=== PATIENT | female | born 1960 | race Caucasian/White ===

== ENCOUNTER 2017-02-09 13:39 | Emergency (ER) | payer OTHER ==
[~2017-02-09] VITALS: Ht 165.1 cm; Wt 89.0 kg
[2017-02-09 13:44] VITALS: TEMP 36.9
[2017-02-09] MEDS ORDERED: SODIUM CHLORIDE 0.9% 1000ML 1,000 ML IV STA (15:07)
[2017-02-09] MEDS ORDERED: SODIUM CHLORIDE 0.9% 1000ML 1,000 ML IV SCH (15:07)
[2017-02-09] MEDS ORDERED: PROCHLORPERAZINE 5 MG/ML 2 ML VIAL IV STA (15:07)
[2017-02-09] MEDS ORDERED: DiphenhydrAMINE HCL 50 MG/ML VIAL IV STA (15:07)
[2017-02-09 15:09] VITALS: Ht 165.1 cm; Wt 89.0 kg
[2017-02-09 15:16] VITALS: O2SAT 92
[2017-02-09] MEDS ORDERED: BIOT1TAB5 PO (15:48)
[2017-02-09] MEDS ORDERED: ATOR-24 PO (15:48)
[2017-02-09] MEDS ORDERED: SUCR5SUS PO (15:48)
[2017-02-09] MEDS ORDERED: CYAN100T PO (15:48)
[2017-02-09] MEDS ORDERED: LANS30CA12 PO (15:48)
[2017-02-09] MEDS ORDERED: CHOL100027 PO (15:48)
[2017-02-09] MEDS ORDERED: PRM625 PO (15:48)
[2017-02-09] MEDS ORDERED: BUPR75TA20 PO (15:48)
[2017-02-09] MEDS ORDERED: METO25TA56 PO (15:48)
[2017-02-09] MEDS ORDERED: ESCI1TAB6 PO (15:48)
[2017-02-09 15:49] LABS: BASO % 0.3 %; BASO ABS # 0.02 K/uL (0-0.2); COMPLETE YES; EOS % 1.8 %; IG% 0.3 %; LYMPH % 27.1 %; LYMPH ABS # 1.91 K/uL (1.2-3.4); MEAN CELL VOLUME 90.5 fL (80-100); MEAN CORPUSCULAR HEMOGLOBIN 29.9 pg (25-34); MEAN CORPUSCULAR HGB CONC 33.1 g/dl (32-36); MEAN PLATELET VOLUME 10.3 fL (7.4-10.4); MONO % 7.9 %; NEUT % 62.6 %; PLATELET COUNT 237 K/uL (130-400); RED BLOOD COUNT 4.31 M/uL (4.2-5.4); WHITE BLOOD COUNT 7.06 K/uL (4.8-10.8)
--- NOTE | 2017-02-09 15:50 | DIAGNOSTIC IMAGING REPORT ---
CT HEAD WITHOUT CONTRAST (CT) CLINICAL HISTORY: Stroke MIGRAINE, LIKELY SENSITIVITY, CONFUSION. COMPARISON STUDY: No previous studies for comparison. TECHNIQUE: Axial CT of the brain is performed from the vertex to the skull base. IV contrast was not administered for this examination. CT DOSE: 537.48 mGy.cm FINDINGS: No intra or extra-axial mass lesions are visualized. There is no CT evidence of acute cortical infarction. There is no evidence of midline shift. There is no acute hemorrhage. No calvarial fractures are visualized. There are patchy white matter hypodensities likely on a small vessel basis. There is no evidence of pathologic ventricular dilatation. There is no evidence of acute sinusitis IMPRESSION: Nonspecific white matter hypodensities, likely on a small vessel basis. No evidence of intracranial mass. No evidence of acute hemorrhage. Electronically signed by: Colton Amanda M.D. 02/09/2017 3:49 PM Dictated Date/Time: 02/09/2017 3:48 PM
[2017-02-09 16:00] VITALS: BP 162/81; O2SAT 96
[2017-02-09 16:11] LABS: PARTIAL THROMBOPLASTIN RATIO 0.9; PROTHROMBIN TIME (PATIENT) 10.8 SECONDS (9.0-12.0)
[2017-02-09 16:17] LABS: BLOOD UREA NITROGEN 19 mg/dl (7-18); BUN/CREATININE RATIO 19.5 (10-20); CARBON DIOXIDE 27 mmol/L (21-32); CHLORIDE 109 mmol/L (98-107); GLUCOSE 88 mg/dl (70-99); POTASSIUM 4.2 mmol/L (3.5-5.1); SODIUM 143 mmol/L (136-145)
[2017-02-09 16:24] VITALS: PULSE 54
[2017-02-09 17:01] LABS: BENZODIAZEPINE, URINE NEG (NEG); COCAINE,URINE NEG (NEG); PHENCYCLIDINE, URINE NEG (NEG)
--- NOTE | 2017-02-09 17:52 | EMERGENCY ROOM VISIT NOTE ---
History Report prepared by Karin: Camryn Fitch Under the Supervision of: Dr. Maximo Thompson M.D. First contact with patient: 14:54 Chief Complaint: HEADACHE Stated Complaint: MIGRAINE, LIGHT SENSITIVITY, NOT UNDERSTANDING History of Present Illness The patient is a 56 year old female who presents to the Emergency Room with complaints of a persistent headache that began about 10 days ago. Most of her pain is towards the left side of her head across the top of her head. She also reports stabbing pain to the druze area. Light makes her pain worse. She is nauseated. She has had migraines in the past but doesn't get them often. Her migraines do not typically last this long. The quality of her pain does not feel like a typical migraine either - she usually has a dull aching pain in her right forehead with neck stiffness that resolves much more quickly. Her headache does not feel like this currently. This morning, the patient notes that she was uncomfortable due to her migraine. When she was taking to one of her coworkers, she could not understand what they were saying. She was able to understand when she was explained through pictures. This lasted for about an hour, although she reports that she felt intense "cloudiness" in her head afterwards, "my thoughts are not clear." She reports that this has been going on for a while. She often has trouble speaking and making herself understood. Her has noticed this worsening over the past month. He states that she seems to pause while she is talking to try to find a word. The pauses are getting longer and more frequent. Her thoughts are incomplete but not incoherent. She has not had any slurred speech. Her also notes that she has had muted hearing and some fuzzy vision. Finally, the patient complains of numbness in her hands and feet for years that has progressively gotten worse. She had an MRI of the brain a couple of weeks ago since she started having worsening speech problems but has not heard back with results. The patient has a history of diabetes and hypertension prior to a gastric bypass. She does not have a history of stroke. Denies fever, vomiting, unilateral numbness or weakness, or other complaints. Source of History: patient Onset: 10 days ago Position: head Timing: other (persistent) Modifying Factors (Worsening): other (light) Associated Symptoms: + nausea, + numbness (hands and feet), No fevers, No vomiting, No weakness Note: Other symptoms: neurological symptoms (unclear thoughts, pausing to speak) Review of Systems See HPI for pertinent positives & negatives. A total of 10 systems reviewed and were otherwise negative. Past Medical & Surgical Medical Problems: (1) Asthma (2) Diabetes (3) H/O unilateral nephrectomy Surgical Problems: (1) H/O: hysterectomy (2) Hx of cholecystectomy Family History Cancer Diabetes mellitus FHx: gallbladder disease Heart disease Hypertension Kidney disease Kidney stones Lung disease Social History Smoking Status: Never Smoker Smokeless Tobacco Use: No Alcohol Use: none Marital Status: Housing Status: lives with family Occupation Status: employed Current/Historical Medications Scheduled Atorvastatin (Lipitor), 40 MG PO DAILY Biotin (Biotin), 1,000 MCG PO TID Bupropion (Wellbutrin), 75 MG PO BID Cholecalciferol (Vitamin D 1000 Unit), 1,000 INTER.UNIT PO DAILY Cyanocobalamin (Vitamin B-12), 100 MCG PO DAILY Escitalopram Oxalate (Lexapro), 5 MG PO DAILY Estrogens, Conjugated (Premarin), 0.625 MG PO DAILY Lansoprazole (Prevacid), 30 MG PO DAILY Metoprolol Tartrate (Lopressor) (Lopressor), 25 MG PO BID Sucralfate (Sucralfate), 1 GM PO QID Allergies Coded Allergies: Penicillins (Verified Allergy, Severe, ANAPHYLAXIS, 02/09/17) Cat Dander (Verified Allergy, Intermediate, Itching, 02/09/17) Dust Mite Extract (Verified Allergy, Intermediate, Sneezing and watery eyes, 02/09/17) Erythromycin (Verified Allergy, Intermediate, Nausea/Vomiting, 02/09/17) Morphine (Verified Allergy, Intermediate, Migraine, 02/09/17) Woodward (Verified Allergy, Intermediate, Rash, 02/09/17) Tramadol (Verified Allergy, Intermediate, Rash, 02/09/17) Physical Exam Vital Signs Date Time Temp Pulse Resp B/P Pulse Ox O2 Delivery O2 Flow Rate FiO2 02/09/17 16:24 54 02/09/17 16:00 52 20 162/81 96 Room Air 02/09/17 15:40 46 16 02/09/17 15:16 92 Room Air 02/09/17 13:44 36.9 57 16 174/81 92 Room Air Physical Exam Constitutional: Vital signs reviewed. Eyes: Pupils are equal round reactive to light. Conjunctiva are noninjected. ENT: Pharynx is clear without erythema or exudate. Mucous membranes are moist. Neck supple without meningeal signs. Respiratory: Clear to auscultation bilaterally. Breath sounds are equal bilaterally. Cardiovascular: Regular rate and rhythm. No rubs or gallops. GI: Soft, nondistended and nontender. Bowel sounds are present. Musculoskeletal: No peripheral edema. No lower extremity tenderness. Integumentary: No cyanosis. Neurological: The patient is awake and alert. Cranial nerves II-XII are intact. Motor is 5 out of 5 all extremities. Diminished sensation in both feet. Normal speech. No pronator drift. Psychiatric: Normal affect. Medical Decision & Procedures ER Provider Diagnostic Interpretation: Radiology results as stated below per my review and the radiologist's interpretation: CT HEAD WITHOUT CONTRAST (CT) CLINICAL HISTORY: Stroke MIGRAINE, LIKELY SENSITIVITY, CONFUSION. COMPARISON STUDY: No previous studies for comparison. TECHNIQUE: Axial CT of the brain is performed from the vertex to the skull base. IV contrast was not administered for this examination. CT DOSE: 537.48 mGy.cm FINDINGS: No intra or extra-axial mass lesions are visualized. There is no CT evidence of acute cortical infarction. There is no evidence of midline shift. There is no acute hemorrhage. No calvarial fractures are visualized. There are patchy white matter hypodensities likely on a small vessel basis. There is no evidence of pathologic ventricular dilatation. There is no evidence of acute sinusitis IMPRESSION: Nonspecific white matter hypodensities, likely on a small vessel basis. No evidence of intracranial mass. No evidence of acute hemorrhage. Electronically signed by: Colton Amanda M.D. 02/09/2017 3:49 PM Dictated Date/Time: 02/09/2017 3:48 PM Laboratory Results 02/09/17 15:30 Red Blood Count 4.31, Mean Corpuscular Volume 90.5, Mean Corpuscular Hemoglobin 29.9, Mean Corpuscular Hemoglobin Concent 33.1, Mean Platelet Volume 10.3, Neutrophils (%) (Auto) 62.6, Lymphocytes (%) (Auto) 27.1, Monocytes (%) (Auto) 7.9, Eosinophils (%) (Auto) 1.8, Basophils (%) (Auto) 0.3, Neutrophils # (Auto) 4.42, Lymphocytes # (Auto) 1.91, Monocytes # (Auto) 0.56, Eosinophils # (Auto) 0.13, Basophils # (Auto) 0.02 02/09/17 15:30 Test 02/09/17 13:46 02/09/17 15:23 02/09/17 15:30 Urine Opiates Screen NEG (NEG) Urine Methadone, Qualitative NEG (NEG) Urine Barbiturates NEG (NEG) Urine Phencyclidine (PCP) Level NEG (NEG) Ur Amphetamine/Methamphetamine NEG (NEG) MDMA (Ecstasy) Screen POS (NEG) Urine Benzodiazepines Screen NEG (NEG) Urine Cocaine Metabolite NEG (NEG) Urine Marijuana (THC) NEG (NEG) Bedside Glucose 84 mg/dl (70-90) White Blood Count 7.06 K/uL (4.8-10.8) Red Blood Count 4.31 M/uL (4.2-5.4) Hemoglobin 12.9 g/dL (12.0-16.0) Hematocrit 39.0 % (37-47) Mean Corpuscular Volume 90.5 fL (80-100) Mean Corpuscular Hemoglobin 29.9 pg (25-34) Mean Corpuscular Hemoglobin Concent 33.1 g/dl (32-36) Platelet Count 237 K/uL (130-400) Mean Platelet Volume 10.3 fL (7.4-10.4) Neutrophils (%) (Auto) 62.6 % Lymphocytes (%) (Auto) 27.1 % Monocytes (%) (Auto) 7.9 % Eosinophils (%) (Auto) 1.8 % Basophils (%) (Auto) 0.3 % Neutrophils # (Auto) 4.42 K/uL (1.4-6.5) Lymphocytes # (Auto) 1.91 K/uL (1.2-3.4) Monocytes # (Auto) 0.56 K/uL (0.11-0.59) Eosinophils # (Auto) 0.13 K/uL (0-0.5) Basophils # (Auto) 0.02 K/uL (0-0.2) RDW Standard Deviation 44.0 fL (36.4-46.3) RDW Coefficient of Variation 13.4 % (11.5-14.5) Immature Granulocyte % (Auto) 0.3 % Immature Granulocyte # (Auto) 0.02 K/uL (0.00-0.02) Prothrombin Time 10.8 SECONDS (9.0-12.0) Prothromb Time International Ratio 1.0 (0.9-1.1) Activated Partial Thromboplast Time 22.6 SECONDS (21.0-31.0) Partial Thromboplastin Ratio 0.9 Anion Gap 7.0 mmol/L (3-11) Est Creatinine Clear Calc Drug Dose 69.2 ml/min Estimated GFR () 72.9 Estimated GFR (Non- 62.9 BUN/Creatinine Ratio 19.5 (10-20) Calcium Level 10.0 mg/dl (8.5-10.1) Total Creatine Kinase 54 U/L (26-192) Creatine Kinase MB < 0.5 ng/ml (0.5-3.6) Creatine Kinase MB Ratio (0-3.0) Troponin I < 0.015 ng/ml (0-0.045) Laboratory results as reviewed by me. Medications Administered Medications (Trade) Dose Ordered Sig/Bhavesh Route Start Time Stop Time Status Last Admin Dose Admin Sodium Chloride (Nss 1000ml) 1,000 ml @ 50 mls/hr Q20H IV 02/09/17 15:07 02/09/17 16:50 DC 02/09/17 15:38 50 MLS/HR Prochlorperazine Edisylate (Compazine Inj) 10 mg NOW STAT IV 02/09/17 15:07 02/09/17 15:08 DC 02/09/17 16:00 10 MG Diphenhydramine HCl 50 mg 50 mg NOW STAT IV 02/09/17 15:07 02/09/17 15:08 DC 02/09/17 15:59 50 MG Sodium Chloride (Nss 1000ml) 1,000 ml @ 999 mls/hr Q1H1M STAT IV 02/09/17 15:07 02/09/17 16:07 DC 02/09/17 15:38 999 MLS/HR ECG Indication: other (neurological symptoms) Rate (beats per minute): 46 Rhythm: sinus bradycardia Findings: no acute ischemic change, no ectopy ED Course 1455: The patient was evaluated in room D9. A complete history and physical exam was performed. 1507: Ordered NSS 1000 ml @ 999 mls/hr IV, Tammiryl Inj 50 mg IV, Compazine Inj 10 mg IV, NSS 1000 ml @ 50 mls/hr IV. 1540: I reviewed the patient's records from [facility]. She was seen by Dr. Harmon January 08 for several months for a history of being forgetful and trouble finding words. She had seen a neurologist and psychiatrist as well as other specialists in [place] where she is initially from. She had an MRI of the brain January 26 which showed no acute intracranial abnormality without ischemia or mass lesion. She did have some nonspecific white matter signal abnormalities. 1612: I reassessed the patient. Her headache was improved. Her heart rate is in the 60s. 1627: I reassessed the patient and updated her on results. She said that her headache is better and she agreed to follow up with neurology. The patient will be discharged home. Medical Decision This is a 56-year-old female who presents with headache and problems with her speech and comprehension. Differential diagnosis includes migraine headache, tension headache, intracranial mass, intracranial hemorrhage, CVA, early onset dementia. I did perform a limited focused review of portions of the patient's old chart on the electronic medical record. The patient has had no prior visits to this hospital. I did evaluate the patient as noted above. She is neurologically intact. She has no trouble with her comprehension her speech at this time that is noticeable to me. IV access was established. I did order and personally review the patient's 12-lead EKG as described above. She did have some bradycardia during the EKG but on the monitor she has had normal sinus rhythm with a rate in the 60s. I did order and review the patient's blood work as noted in the electronic medical record. I did order a CT of the head. I did review the images myself as well as the radiology report as described above. There is no evidence of acute hemorrhage or mass. She did have some nonspecific white matter hypodensities. I did treat patient with IV Compazine and Benadryl. I did reassess the patient. She is feeling better. I did discuss the test results with her and recommended close follow up with her neurologist and physician. She was discharged in good condition. Impression Primary Impression: Acute headache Additional Impression: Speech problem Scribe Attestation The scribe's documentation has been prepared under my direct and personally reviewed by me in its entirety. I confirm that the note above accurately reflects all work, treatment, procedures, and medical decision making performed by me. Departure Information Dispostion Home / Self-Care Referrals No Doctor, Assigned (PCP) Kaleb Harmon M.D. Patient Instructions Headache Pain, My [facility] Additional Instructions You have been examined and treated today on an emergency basis only. This is not a substitute for, or an effort to provide, complete comprehensive medical care. It is impossible to recognize and treat all injuries or illnesses in a single emergency department visit. It is therefore important that you follow up closely with your physician. Call as soon as possible for an appointment. Return for worsening symptoms or if you develop fever, new numbness or weakness on one side of your body, difficulties with walking, or any other concerning symptoms. Problem Qualifiers Primary Impression: Acute headache Headache type: unspecified
== END 2017-02-09 16:30 | disposition home or self-care (01) ==
LOC: C.EDB 13:42 → C.EDD 16:30
DX: R51 Headache (principal); R47.9 Unspecified speech disturbances; J45.909 Unspecified asthma, uncomplicated; E11.9 Type 2 diabetes mellitus without complications; Z98.84 Bariatric surgery status; Z80.9 Family history of malignant neoplasm, unspecified; Z83.3 Family history of diabetes mellitus; Z83.79 Family history of other diseases of the digestive system; Z82.49 Family history of ischemic heart disease and other diseases of the circulatory system; Z84.1 Family history of disorders of kidney and ureter; Z83.6 Family history of other diseases of the respiratory system; Z79.899 Other long term (current) drug therapy

== ENCOUNTER 2017-10-28 09:04 | Emergency (ER) | payer OTHER ==
[~2017-10-28] VITALS: Ht 165.1 cm; Wt 94.0 kg
[~2017-10-28 09:04] MED LIST: ATOR-24 PO; BIOT1TAB5 PO; BUPR75TA20 PO; CHOL100027 PO; CYAN100T PO; ESCI1TAB6 PO; LANS30CA12 PO; METO25TA56 PO; PRM625 PO; SUCR5SUS PO
[2017-10-28 09:13] VITALS: Ht 165.1 cm; Wt 94.0 kg
--- NOTE | 2017-10-28 09:53 | EMERGENCY ROOM VISIT NOTE ---
History Report prepared by Karin: Isa Jacobs Under the Supervision of: Dr. Erendira Owens M.D. First contact with patient: 09:35 Chief Complaint: BACK PAIN Stated Complaint: BACK PAIN, BLOOD IN STOOL History of Present Illness The patient is a 57 year old female who presents to the Emergency Room with complaints of persistent left sided back pain that began one week ago. She currently rates her discomfort as a 4/10 in severity. The patient states that she has been experiencing sharp pain in her left back, noting that she felt that she had pulled a muscle. She reports increased pain with movement and deep breathing. The patient states that she has tried Tylenol at home without relief. She states that she only has one kidney on her left side, noting that she had a right nephrectomy and cholecystectomy due to cancer. The patient states that since last Wednesday she had diarrhea. She states that two days ago her bowel movements became solid again. The patient states that around 1700 she noted blood in her stools. She states that the bleeding was after a hard bowel movement. The patient denies being on any blood thinners. She denies any fever, chest pain, or shortness of breath. Source of History: patient Onset: 03/01 Position: back Symptom Intensity: 4/10 Quality: sharp Timing: other (persistent) Modifying Factors (Worsening): breathing (deep), movement Associated Symptoms: + diarrhea, No fevers, No chest pain, No SOB Note: Associated Symptoms: rectal bleeding Review of Systems See HPI for pertinent positives & negatives. A total of 10 systems reviewed and were otherwise negative. Past Medical & Surgical Medical Problems: (1) Asthma (2) Diabetes (3) H/O unilateral nephrectomy Surgical Problems: (1) H/O: hysterectomy (2) Hx of cholecystectomy Family History Cancer Diabetes mellitus FHx: gallbladder disease Heart disease Hypertension Kidney disease Kidney stones Lung disease Social History Smoking Status: Never Smoker Alcohol Use: none Marital Status: Housing Status: lives with family Occupation Status: employed Current/Historical Medications Scheduled Atorvastatin (Lipitor), 40 MG PO DAILY Azithromycin (Azithromycin), 1 TAB PO DAILY Biotin (Biotin), 1,000 MCG PO TID Bupropion (Wellbutrin), 75 MG PO BID Cholecalciferol (Vitamin D 1000 Unit), 1,000 INTER.UNIT PO DAILY Cyanocobalamin (Vitamin B-12), 100 MCG PO DAILY Escitalopram Oxalate (Lexapro), 20 MG PO DAILY Estrogens, Conjugated (Premarin), 0.625 MG PO DAILY Lamotrigine (Lamictal), 25 MG PO DAILY Lansoprazole (Prevacid), 30 MG PO DAILY Magnesium Oxide (Mag-Ox), 1,000 MG PO DAILY Metoprolol Tartrate (Lopressor) (Lopressor), 25 MG PO BID Ribavirin (Copegus), 400 MG PO DAILY Sucralfate (Sucralfate), 1 GM PO QID Allergies Coded Allergies: Penicillins (Verified Allergy, Severe, ANAPHYLAXIS, 10/28/17) Cat Dander (Verified Allergy, Intermediate, Itching, 10/28/17) Dust Mite Extract (Verified Allergy, Intermediate, Sneezing and watery eyes, 10/28/17) Erythromycin (Verified Allergy, Intermediate, Nausea/Vomiting, 10/28/17) Morphine (Verified Allergy, Intermediate, Migraine, 10/28/17) Harrison (Verified Allergy, Intermediate, Rash, 10/28/17) Tramadol (Verified Allergy, Intermediate, Rash, 10/28/17) Hydrocodone (Unverified Allergy, Unknown, MIGRAIN, 10/28/17) Physical Exam Vital Signs Date Time Temp Pulse Resp B/P (MAP) Pulse Ox O2 Delivery O2 Flow Rate FiO2 10/28/17 13:41 36.7 55 18 138/78 97 10/28/17 13:31 55 18 138/78 97 Room Air 10/28/17 12:25 55 18 149/88 96 Room Air 10/28/17 10:31 51 10/28/17 10:27 36.7 51 18 154/85 95 Room Air 10/28/17 09:13 36.7 51 18 152/67 95 Room Air Physical Exam Vital signs reviewed. General: Well-appearing female, in no significant distress. HEENT: No scleral icterus, PERRLA, neck supple. Atraumatic. Cardiovascular: Regular rate and rhythm, no extra sounds. Pulmonary: Clear to auscultation bilaterally, normal work of breathing. Abdomen: Soft, nondistended, positive bowel sounds. Back: Positive left CVA tenderness, pain with deep breathing. Rectal: Guaiac negative. Normal rectal exam. Musculoskeletal: Atraumatic, no peripheral edema. Neurologic: Patient awake alert and oriented x 3, full strength in all 4 extremities. Cranial nerves 2 through 12 grossly intact. Skin: Warm, dry, no rash Medical Decision & Procedures ER Provider Diagnostic Interpretation: Radiology results as stated below per my review and radiologist interpretation: (RENAL)RETROPERITON COMP HISTORY: Pain L kidney only, L flank pain, h/o RCC right kidney COMPARISON: None. FINDINGS: Right kidney: Surgically removed Left kidney: Maximum dimension 12.5 cm. Normal corticomedullary differentiation and cortical thickness. No evidence for hydronephrosis. Bladder: No bladder wall thickening. The bilateral ureteral jets were identified. IMPRESSION: 1. Status post right nephrectomy. 2. Normal left kidney. The above report was generated using voice recognition software. It may contain grammatical, syntax or spelling errors. Electronically signed by: Azar Nash M.D. 10/28/2017 11:21 AM Dictated Date/Time: 10/28/2017 11:20 AM (CHEST FOR PE) ANGIO WITH CT DOSE: 388.87 mGy.cm HISTORY: Chest pain dyspnea TECHNIQUE: Multiaxial CT images of the chest were performed following the intravenous administration of contrast to evaluate the pulmonary arteries. Maximal intensity projection images were also obtained. A dose lowering technique was utilized adhering to the principles of ALARA. COMPARISON STUDY: None. FINDINGS: There is a normal caliber thoracic aorta with no evidence for dissection. There is no evidence for pulmonary embolus. No pleural effusions. No pneumothorax. The liver and spleen are unremarkable. No mediastinal or hilar lymphadenopathy. The central airways are patent. Mild bibasilar interstitial change throughout both lower lungs. Several nonspecific hypodensities within the liver possibly small cysts. IMPRESSION: 1. Study is negative for pulmonary embolus. 2. Interstitial change at both lung bases suggesting potential mild interstitial pneumonitis. 3. Prior gastroplasty and cholecystectomy. The above report was generated using voice recognition software. It may contain grammatical, syntax or spelling errors. Electronically signed by: Azar Nash M.D. 10/28/2017 12:16 PM Dictated Date/Time: 10/28/2017 12:02 PM Laboratory Results 10/28/17 09:31 Red Blood Count 4.16, Mean Corpuscular Volume 90.6, Mean Corpuscular Hemoglobin 29.8, Mean Corpuscular Hemoglobin Concent 32.9, Mean Platelet Volume 10.1, Neutrophils (%) (Auto) 67.8, Lymphocytes (%) (Auto) 22.1, Monocytes (%) (Auto) 7.6, Eosinophils (%) (Auto) 1.8, Basophils (%) (Auto) 0.6, Neutrophils # (Auto) 4.84, Lymphocytes # (Auto) 1.58, Monocytes # (Auto) 0.54, Eosinophils # (Auto) 0.13, Basophils # (Auto) 0.04 10/28/17 09:31 Test 10/28/17 09:31 10/28/17 09:59 10/28/17 10:40 White Blood Count 7.14 K/uL (4.8-10.8) Red Blood Count 4.16 M/uL (4.2-5.4) Hemoglobin 12.4 g/dL (12.0-16.0) Hematocrit 37.7 % (37-47) Mean Corpuscular Volume 90.6 fL (80-100) Mean Corpuscular Hemoglobin 29.8 pg (25-34) Mean Corpuscular Hemoglobin Concent 32.9 g/dl (32-36) Platelet Count 252 K/uL (130-400) Mean Platelet Volume 10.1 fL (7.4-10.4) Neutrophils (%) (Auto) 67.8 % Lymphocytes (%) (Auto) 22.1 % Monocytes (%) (Auto) 7.6 % Eosinophils (%) (Auto) 1.8 % Basophils (%) (Auto) 0.6 % Neutrophils # (Auto) 4.84 K/uL (1.4-6.5) Lymphocytes # (Auto) 1.58 K/uL (1.2-3.4) Monocytes # (Auto) 0.54 K/uL (0.11-0.59) Eosinophils # (Auto) 0.13 K/uL (0-0.5) Basophils # (Auto) 0.04 K/uL (0-0.2) RDW Standard Deviation 44.2 fL (36.4-46.3) RDW Coefficient of Variation 13.4 % (11.5-14.5) Immature Granulocyte % (Auto) 0.1 % Immature Granulocyte # (Auto) 0.01 K/uL (0.00-0.02) Anion Gap 5.0 mmol/L (3-11) Est Creatinine Clear Calc Drug Dose 68.3 ml/min Estimated GFR () 69.9 Estimated GFR (Non- 60.3 BUN/Creatinine Ratio 16.3 (10-20) Calcium Level 9.4 mg/dl (8.5-10.1) Magnesium Level 2.0 mg/dl (1.8-2.4) Total Bilirubin 0.5 mg/dl (0.2-1) Direct Bilirubin < 0.1 mg/dl (0-0.2) Aspartate Amino Transf (AST/SGOT) 20 U/L (15-37) Alanine Aminotransferase (ALT/SGPT) 24 U/L (12-78) Alkaline Phosphatase 88 U/L (45-117) Total Protein 6.6 gm/dl (6.4-8.2) Albumin 3.1 gm/dl (3.4-5.0) Lipase 174 U/L (73-393) Bedside D-Dimer > 450 ng/mlFEU (0-450) Bedside Troponin I < 0.030 ng/ml (0-0.045) Urine Color DK YELLOW Urine Appearance CLEAR (CLEAR) Urine pH 5.5 (4.5-7.5) Urine Specific [place] 1.015 (1.000-1.030) Urine Protein NEG (NEG) Urine Glucose (UA) NEG (NEG) Urine Ketones NEG (NEG) Urine Occult Blood NEG (NEG) Urine Nitrite NEG (NEG) Urine Bilirubin NEG (NEG) Urine Urobilinogen NEG (NEG) Urine Leukocyte Esterase NEG (NEG) Laboratory results per my review. Medications Administered Medications (Trade) Dose Ordered Sig/Bhavesh Route Start Time Stop Time Status Last Admin Dose Admin Hydromorphone HCl (Dilaudid Inj) 0.5 mg NOW STAT IV 10/28/17 10:25 10/28/17 10:27 DC 10/28/17 10:39 0.5 MG Ondansetron HCl (Zofran Inj) 4 mg NOW STAT IV 10/28/17 10:25 10/28/17 10:27 DC 10/28/17 10:39 4 MG Sodium Chloride 500 ml @ 999 mls/hr Q31M STAT IV 10/28/17 10:25 10/28/17 10:55 DC 10/28/17 10:39 999 MLS/HR Azithromycin (Zithromax Tab) 500 mg NOW ONCE PO 10/28/17 13:00 10/28/17 13:01 DC 10/28/17 13:36 500 MG ECG Indication: back/shoulder pain Rate (beats per minute): 51 Rhythm: sinus bradycardia Findings: no acute ischemic change, no ectopy, other (T wave abnormality anteriorly) ED Course 0938: Past medical records reviewed. The patient was evaluated in room B5. A complete history and physical examination was performed. 1025: Ordered Sodium Chloride 500 ml @ 999 mls/hr IV, Zofran Inj 4 mg IV, Dilaudid Inj 0.5 mg IV. 1240: I reevaluated the patient and she is resting comfortably. I discussed the test results with the patient and I discussed the treatment plan. She verbalized complete understanding and agreement. The patient is ready to go home. 1300: Ordered Azithromycin 500 mg PO. Medical Decision Differential diagnosis: Etiologies such as musculoskeletal, disc herniation, fracture, aortic disease, metastatic disease, cord compression, discitis, infection, renal colic, gastrointestinal, acute exacerbation of chronic back pain, sciatica, cauda equina, as well as others were entertained. This pt was evaluated and appeared to be in no distress. IV access was obtained and lab work was drawn. Retroperitoneal US was performed and reveals the post-nephrectomy state, but the left kidney appears to be normal. Lab work is significant for a + d-dimer. CTA chest was performed with half dose contrast and reveals B interstitial changes concerning for pneumonitis. Pt was given IV dilaudid 0.5 mg, 4 mg IV zofran and 500 ml bag of NSS. She was given oral hydration as well. Pt was advised of the findings. Pt was given azithromycin 500 mg po with a Rx for remaining 4 days. Pt will continue to hydrate and use tylenol for pain. Pt will return to the ED for worsening of symptoms or any medical concerns. Medication Reconcilliation Current Medication List: was personally reviewed by me Impression Primary Impression: Muscle strain of left upper back Additional Impression: Pneumonia Scribe Attestation The scribe's documentation has been prepared under my direction and personally reviewed by me in its entirety. I confirm that the note above accurately reflects all work, treatment, procedures, and medical decision making performed by me. Departure Information Dispostion Home / Self-Care Prescriptions Azithromycin (Azithromycin) 250 Mg Tab 1 TAB PO DAILY for 4 Days, #4 TAB Prov: Erendira Owens M.D. 10/28/17 Referrals No Doctor, Assigned (PCP) Kaleb Harmon M.D. Forms HOME CARE DOCUMENTATION FORM, IMPORTANT VISIT INFORMATION Patient Instructions My [facility] Additional Instructions Diagnosis: Pneumonia, left upper back strain Azithromycin 250 mg daily for 4 more days, start tomorrow Tylenol 650 mg every 6 hours as needed for pain. Warm compresses and gentle stretching. Follow-up with your primary care physician this week for reevaluation. Return to the ER for worsening of symptoms or any medical concerns. Problem Qualifiers
[2017-10-28] MEDS ORDERED: MAGN400T6 PO (09:59)
[2017-10-28] MEDS ORDERED: [UNRECOGNIZED DRUG - CODE] PO (09:59)
[2017-10-28] MEDS ORDERED: LAMO25TA PO (09:59)
[2017-10-28 10:00] LABS: BASO % 0.6 %; BASO ABS # 0.04 K/uL (0-0.2); COMPLETE YES; EOS % 1.8 %; HEMATOCRIT 37.7 % (37-47); IG% 0.1 %; LYMPH % 22.1 %; LYMPH ABS # 1.58 K/uL (1.2-3.4); MEAN CELL VOLUME 90.6 fL (80-100); MEAN CORPUSCULAR HEMOGLOBIN 29.8 pg (25-34); MEAN CORPUSCULAR HGB CONC 32.9 g/dl (32-36); MEAN PLATELET VOLUME 10.1 fL (7.4-10.4); MONO % 7.6 %; NEUT % 67.8 %; PLATELET COUNT 252 K/uL (130-400); RED BLOOD COUNT 4.16 M/uL (4.2-5.4); WHITE BLOOD COUNT 7.14 K/uL (4.8-10.8)
[2017-10-28 10:19] LABS: POINT OF CARE TROPONIN I < 0.030 ng/ml (0-0.045)
[2017-10-28 10:21] LABS: ALT/SGPT 24 U/L (12-78); BLOOD UREA NITROGEN 17 mg/dl (7-18); BUN/CREATININE RATIO 16.3 (10-20); CALCIUM 9.4 mg/dl (8.5-10.1); CARBON DIOXIDE 27 mmol/L (21-32); CHLORIDE 107 mmol/L (98-107); CREATININE 1.03 mg/dl (0.60-1.20); GLUCOSE 91 mg/dl (70-99); POTASSIUM 4.2 mmol/L (3.5-5.1); SODIUM 139 mmol/L (136-145)
[2017-10-28 10:24] LABS: ALKALINE PHOSPHATASE 88 U/L (45-117); AST/SGOT 20 U/L (15-37)
[2017-10-28] MEDS ORDERED: HYDROmorphone INJ 0.5 MG/0.5 ML SYR IV STA (10:25)
[2017-10-28] MEDS ORDERED: ONDANSETRON INJ 2 MG/ML 2 ML VIAL IV STA (10:25)
[2017-10-28] MEDS ORDERED: SODIUM CHLORIDE 0.9% 500ML 500 ML IV STA (10:25)
[2017-10-28 10:53] LABS: URINE APPEARANCE CLEAR (CLEAR); URINE BILIRUBIN NEG (NEG); URINE COLOR DK YELLOW; URINE NITRITE NEG (NEG); URINE PH 5.5 (4.5-7.5); URINE SPECIFIC GRAVITY 1.015 (1.000-1.030); UROBILINOGEN NEG (NEG); ZZUR CULT IF INDIC CLEAN CATCH NO
[2017-10-28 10:57] LABS: MANUAL MICROSCOPIC REQUIRED? NO; REVIEW REQ? NO
--- NOTE | 2017-10-28 11:22 | DIAGNOSTIC IMAGING REPORT ---
(RENAL)RETROPERITON COMP HISTORY: Pain L kidney only, L flank pain, h/o RCC right kidney COMPARISON: None. FINDINGS: Right kidney: Surgically removed Left kidney: Maximum dimension 12.5 cm. Normal corticomedullary differentiation and cortical thickness. No evidence for hydronephrosis. Bladder: No bladder wall thickening. The bilateral ureteral jets were identified. IMPRESSION: 1. Status post right nephrectomy. 2. Normal left kidney. The above report was generated using voice recognition software. It may contain grammatical, syntax or spelling errors. Electronically signed by: Azar Nash M.D. 10/28/2017 11:21 AM Dictated Date/Time: 10/28/2017 11:20 AM
[2017-10-28] MEDS ORDERED: OPTIRAY 320 IV PRN (11:45)
--- NOTE | 2017-10-28 12:17 | DIAGNOSTIC IMAGING REPORT ---
(CHEST FOR PE) ANGIO WITH CT DOSE: 388.87 mGy.cm HISTORY: Chest pain dyspnea TECHNIQUE: Multiaxial CT images of the chest were performed following the intravenous administration of contrast to evaluate the pulmonary arteries. Maximal intensity projection images were also obtained. A dose lowering technique was utilized adhering to the principles of ALARA. COMPARISON STUDY: None. FINDINGS: There is a normal caliber thoracic aorta with no evidence for dissection. There is no evidence for pulmonary embolus. No pleural effusions. No pneumothorax. The liver and spleen are unremarkable. No mediastinal or hilar lymphadenopathy. The central airways are patent. Mild bibasilar interstitial change throughout both lower lungs. Several nonspecific hypodensities within the liver possibly small cysts. IMPRESSION: 1. Study is negative for pulmonary embolus. 2. Interstitial change at both lung bases suggesting potential mild interstitial pneumonitis. 3. Prior gastroplasty and cholecystectomy. The above report was generated using voice recognition software. It may contain grammatical, syntax or spelling errors. Electronically signed by: Azar Nash M.D. 10/28/2017 12:16 PM Dictated Date/Time: 10/28/2017 12:02 PM
[2017-10-28] MEDS ORDERED: AZITHROMYCIN 250 MG TAB PO ONE (13:00)
[2017-10-28] MEDS ORDERED: AZIT-57 PO (13:13)
[2017-10-28 13:41] VITALS: BP 138/78; PULSE 55; TEMP 36.7; O2SAT 97
== END 2017-10-28 13:42 | disposition home or self-care (01) ==
LOC: C.EDB 09:06
DX: S29.012A Strain of muscle and tendon of back wall of thorax, initial encounter (principal); X58.XXXA Exposure to other specified factors, initial encounter; J45.909 Unspecified asthma, uncomplicated; E11.9 Type 2 diabetes mellitus without complications; Z83.3 Family history of diabetes mellitus; Z82.49 Family history of ischemic heart disease and other diseases of the circulatory system

== ENCOUNTER 2021-01-01 09:30 | Inpatient (IN) ==
--- OUTSIDE RECORDS SUMMARY | 2021-01-01 09:32 | External Medical Summary | Continuity of Care Document ---
:1960 Author Name Stella Covington Address Unavailable Unavailable , Care Team Providers Name Role Phone Jaymie DO Unavailable [email or web address] Unavailable Unavailable Problems Active medical history not documented Allergies and Adverse Reactions Allergy history not documented Medications Medications not documented Procedures Procedures not documented Immunizations Immunizations not documented Plan of Treatment Planned Observations Planned Goals not documented Results No Known Results Results not documented
[2021-01-01] MEDS ORDERED: ONDANSETRON INJ 2 MG/ML 2 ML VIAL IV STA ×2 (10:00→13:15)
[2021-01-01] MEDS ORDERED: SODIUM CHLORIDE 0.9% 1000ML 1,000 ML IV ONE (10:00)
[2021-01-01] MEDS ORDERED: ACETAMINOPHEN 1,000 MG/100 ML VIAL IV STA (10:00)
[2021-01-01] MEDS ORDERED: MoRPHine SULFATE 2 MG/ML CARP IV STA (10:01)
[2021-01-01 10:17] LABS: Basophils # (auto) 0.02 K/uL (0-0.2); Basophils % (auto) 0.1 %; Eosinophils # (auto) 0.03 K/uL (0-0.5); Eosinophils % (auto) 0.2 %; Hematocrit (blood only) 37.5 % (37-47); Hemoglobin 12.1 g/dL (12.0-16.0); Immature Granulocytes # (auto) 0.02 K/uL (0.00-0.02); Immature Granulocytes % (auto) 0.1 %; Lymphocytes # (auto) 0.79 K/uL (1.2-3.4); Lymphocytes % (auto) 5.3 %; Mean Corpuscular Hemoglobin 28.6 pg (25-34); Mean Corpuscular Hgb Conc 32.3 g/dL (32-36); Mean Corpuscular Volume 88.7 fL (80-100); Mean Platelet Volume 9.9 fL (7.4-10.4); Monocytes # (auto) 0.59 K/uL (0.11-0.59); Monocytes % (auto) 3.9 %; Neutrophils # (auto) 13.57 K/uL (1.4-6.5); Neutrophils % (auto) 90.4 %; Platelet Count 236 K/uL (130-400); RDW Coefficient of Variation 14.7 % (11.5-14.5); RDW Standard Deviation 47.6 fL (36.4-46.3); Red Blood Count 4.23 M/uL (4.2-5.4); White Blood Count 15.02 K/uL (4.8-10.8)
[2021-01-01 10:35] LABS: BUN Creatinine Ratio 10.3 (10-20); Calcium 10.2 mg/dl (8.5-10.1); Creatinine Clr Calc Pharmacy 25.2 ml/min; Est GFR (African American) 21.2; Est GFR (Non-African American) 18.2; Potassium 4.4 mmol/L (3.5-5.1)
[2021-01-01 10:39] LABS: Albumin Level 3.7 gm/dl (3.4-5.0); Bilirubin Direct 0.2 mg/dl (0-0.2); Bilirubin,Total 0.6 mg/dl (0.2-1); Total Protein 7.1 gm/dl (6.4-8.2)
--- NOTE | 2021-01-01 11:16 | CT Scan Report ---
CT SCAN OF THE ABDOMEN AND PELVIS WITHOUT CONTRAST CLINICAL HISTORY: L flank and LLQ pain COMPARISON STUDY: 04/16/2018 TECHNIQUE: CT scan of the abdomen and pelvis was performed from the lung bases to the proximal femurs . Images are reviewed in the axial, sagittal, and coronal planes. IV contrast was not administered fo r this examination. A dose lowering technique was utilized adhering to the principles of ALARA. CT DOSE: 669.16 mGy.cm FINDINGS: Lower chest: There is subtle groundglass attenuation of the dependent portion of the lower lobes. The re are no significant pleural effusions. Liver: There is stable 25 mm left hepatic lobe hypodensity, likely representing a cyst. Gallbladder: Surgically absent Spleen: Normal in size and attenuation. Pancreas: Unremarkable. Adrenal glands: There is a stable 18 mm right adrenal nodule likely representing an adenoma Kidneys: The right kidney appears surgically absent. There is left-sided hydronephrosis, hydroureter, and perinephric stranding. There is an obstructing proximal left ureteral calculus measuring 7 x 5 x 4 mm. This is located at the L3-4 level. Bowel: There are no transition zones to indicate bowel obstruction. There are postsurgical changes of a gastric bypass. There is no evidence of acute diverticulitis. By history the appendix is surgicall y absent Peritoneum: There is no intraperitoneal free air or abdominal ascites. Vasculature: The abdominal aorta is normal in course and caliber. Adenopathy: None. Pelvic viscera: The uterus appears surgically absent Skeletal structures: No destructive osseous lesions are seen. IMPRESSION: 1. Obstructing 7 x 5 x 4 mm proximal left ureteral calculus 2. Surgically absent right kidney 3. No evidence of bowel obstruction. No evidence of free air ACT 112: Negative or not required by law. Electronically signed by: Colton Amanda M.D. 01/01/2021 11:15 AM
[2021-01-01] MEDS ORDERED: CIPROFLOXACIN / D5W 400 MG/200 ML BAG IV STA (11:27)
[2021-01-01] MEDS ORDERED: SODIUM CHLORIDE 0.9% 1000ML 500 ML IV ONE (13:01)
--- NOTE | 2021-01-01 13:07 | History & Physical Report ---
Date of Service January 01, 2021 Assessment & Plan (1) Ureteral calculus, left: Pt is 60 y/o F with PMH R renal cell CA s/p nephrectomy, HTN, dyslipidemia, kidney stone, gastric bypass, GERD, anxiety, depression presented to ER with c/o Left flank pain and nausea x 1 day. No fever. WBC: 15 Pending blood cultures, Obtained after initial IV antibiotics in ER In ER given 1L NSS, Cipro 400mg IV, Zofran, 2mg Morphine IV NPO Renal dose cipro IV IVF Bladder scan Urology consult, station installer aware and plan procedure today AM labs (2) IRAM (acute kidney injury): History solitary kidney BUN: 28, Cr: 2.7. Has obstructing ureteral calculi and clinical dehydration Pt to go to OR today per urology Monitor renal functions, avoid nephrotoxic agents when possible Nephrology consult (3) History of nephrectomy, right: H/O Right renal CA s/p nephrectomy. No chemo or radiation history (4) Hypertension: Continue metoprolol tartrate (5) Dyslipidemia: Continue statin (6) Depression with anxiety: Continue escitalopram, bupropion (7) GERD (gastroesophageal reflux disease): Continue PPI DVT Prophylaxis -SCDs Full Code Follows with Dr Harmon for routine care Pt was seen and care coordinated with Dr Marrufo. See addendum History of Present Illness Chief Complaint: Left flank pain, nausea Primary Care Provider: Kaleb Harmon MD Pt is 60 y/o F with PMH R renal cell CA s/p nephrectomy, HTN, dyslipidemia, kidney stone, gastric bypass, GERD, anxiety, depression presented to ER with c/o Left flank pain and nausea x 1 day. Pt states last night started with nausea then with left flank pain radiating to left lower quadrant. Denies vomiting. Reports hasn't urinated today. Denies dysuria or hematuria. Had a few sips of water today. Last ate at 6pm yesterday. Reports chills with no recorded fever. Denies diarrhea, MAGALLANES, dizziness, syncope, vision changes, neck pain, CP, SOB, orthopnea, palpitations, cough, sore throat, choking, otalgia, rhinorrhea, other abdominal pain, paresthesias, weakness, extremity weakness, extremity edema, rashes. Allergies Allergy/AdvReac Type Severity Reaction Status Date / Time Penicillins Allergy Severe ANAPHYLAXIS Verified 01/01/21 11:23 cat dander Allergy Intermediate Itching Verified 01/01/21 11:23 erythromycin base Allergy Intermediate Nausea/Vomi Verified 01/01/21 11:23 ting morphine Allergy Intermediate Migraine Verified 01/01/21 11:23 tramadol Allergy Intermediate Rash Verified 01/01/21 11:23 hydrocodone Allergy Unknown MIGRAIN Unverified 01/01/21 11:23 oxycodone [From Percocet] AdvReac Severe Migraine Verified 01/01/21 11:23 Dust Mite Extract Allergy Intermediate Sneezing Uncoded 01/01/21 11:23 and watery eyes [place] Allergy Intermediate Rash Uncoded 01/01/21 11:23 BIRD FEATHERS Allergy Unknown Rash Uncoded 01/01/21 11:23 Home Medications Medication Instructions Recorded Confirmed Type acetaminophen [Tylenol Extra 500 mg PO Q4 PRN 08/17/18 01/01/21 History Strength] atorvastatin 40 mg PO QPM 08/17/18 01/01/21 History biotin 1,000 mcg PO QPM 08/17/18 01/01/21 History bupropion HCl [Wellbutrin SR] 150 mg PO DAILY 08/17/18 01/01/21 History bupropion HCl [Wellbutrin SR] 300 mg PO HS 08/17/18 01/01/21 History cholecalciferol (vitamin D3) 1,000 unit PO QPM 08/17/18 01/01/21 History [Vitamin D3] cyanocobalamin (vitamin B-12) 100 mcg PO QPM 08/17/18 01/01/21 History [Vitamin B-12] escitalopram oxalate [Lexapro] 20 mg PO QPM 08/17/18 01/01/21 History lansoprazole [Prevacid] 30 mg PO DAILY 08/17/18 01/01/21 History magnesium oxide 400 mg PO QPM 08/17/18 01/01/21 History metoprolol tartrate 25 mg PO BID 08/17/18 01/01/21 History oxybutynin chloride 5 mg PO DAILY 08/17/18 01/01/21 History riboflavin (vitamin B2) 400 mg PO QPM 08/17/18 01/01/21 History albuterol sulfate 2 puff INHALATION Q4H PRN 01/01/21 01/01/21 History vitamins A,C,V-liae-wcztoq 2 tab PO DAILY 01/01/21 01/01/21 History [PreserVision AREDS] Past Med/Surg History Medical History (Updated 01/01/21 @ 13:20 by Beatriz Roman PA-C) Depression with anxiety Dyslipidemia Exercise-induced asthma GERD (gastroesophageal reflux disease) H/O unilateral nephrectomy Right Hypertension Prediabetes Renal cancer Surgical History (Updated 01/01/21 @ 13:07 by Beatriz Roman PA-C) H/O gastric bypass History of nephrectomy, right Hx of cholecystectomy S/P ANNY-BSO Family History Mother Diabetes Sister Diabetes Other Cancer Hypertension Social History Smoking Status: Never smoker Hx Alcohol Use: No Preferred Language: Kazakh Communication Ability: Effective Clerk Funeral Detail Required: No Beliefs That Will Affect Care: None Current Living Situation: Spouse and Family Feels Safe at Home: Yes Assistive Devices: Glasses Review of Systems Review of Systems: All systems reviewed & are unremarkable except as noted in HPI & below Physical Exam Physical Exam: General: no distress, obese Head: normocephalic, atraumatic Eyes: PERRL, EOM's intact, conjunctiva non-injected, anicteric ENT: normal inspection external ears, nose, mucous membranes dry Neck: supple, trachea midline, non-tender Lungs: clear, no respiratory distress, no wheezing/rhonchi/rales CV: RRR, no murmur, no pretibial edema Abd: normal BS, soft, +Left CVA and flank and LLQ tenderness to palpation Ext: no cyanosis, no calf tenderness Neuro: A&O x 3, no focal deficits noted, normal affect Skin: warm, dry Results & Data Results & Data ([facility]) Vital Signs (Past 12 Hours) Vital Signs Temp Pulse Pulse Resp BP BP Pulse Ox 01/01/21 11:30 87 20 165/76 H 97 01/01/21 09:40 36.6 C 62 20 182/84 H 97 Laboratory Results Short CBC 01/01/21 01/01/21 Range/Units 10:06 10:06 WBC 15.02 H (4.8-10.8) K/uL Hgb 12.1 (12.0-16.0) g/dL Hct 37.5 (37-47) % Plt Count 236 (130-400) K/uL Creatinine 2.72 H (0.6-1.2) mg/dl BMP 01/01/21 10:06 Sodium 141 Potassium 4.4 Chloride 109 H Carbon Dioxide 26 BUN 28 H Creatinine 2.72 H Glucose 150 H Calcium 10.2 H Liver Function 01/01/21 Range/Units 10:06 Total Bilirubin 0.6 (0.2-1) mg/dl Direct Bilirubin 0.2 (0-0.2) mg/dl AST 34 (15-37) U/L ALT 52 (12-78) U/L Alkaline Phosphatase 134 H (45-117) U/L Albumin 3.7 (3.4-5.0) gm/dl Diagnostic Findings CT ABD/PELVIS: IMPRESSION: 1. Obstructing 7 x 5 x 4 mm proximal left ureteral calculus 2. Surgically absent right kidney 3. No evidence of bowel obstruction. No evidence of free air Code Status & VTE Plan VTE Prophylaxis Plan VTE Prophylaxis will be ordered: Yes Supervising Physician Co-Signing Physician Notes Pt seen and examined by me, care coordinated with Beatriz Roman PA-C, pls refer to her note above for further detail. Pt is 60 y/o F with PMH R renal cell CA s/p nephrectomy, HTN, dyslipidemia, renal stone, gastric bypass, GERD, anxiety, depression who presents with Left flank pain and nausea x 1 day. Not able to have any PO intake and reports no urine output since yesterday. WBC 15K, no fevers, but reports chills. Currently laying in bed, reports pain but overall in NAD. Conversing easily, pleasant. Alert and oriented and answering questions appropriately. Lungs CTAB w/o any wheezing, rhonchi, crackles. Heart sounds regular. Abdomen, soft, obese + bowel sounds tender to palpation anatoly. in left lower abd. region, + Left CVA. Moves extremities. Skin w/o any rashes. Well perfused. CT in the ED showing obstructive Left ureteral stone, urology contacted. Blood cultx ordered, Cipro and IVF given in ED, will continue. Lia Marrufo MD
[2021-01-01] MEDS ORDERED: METOPROLOL TARTRATE 25 MG TAB PO ONE (13:16)
[2021-01-01] MEDS: MoRPHine SULFATE 2 MG/ML CARP IV PRN ×2 (13:51→17:11)
--- NOTE | 2021-01-01 14:09 | Urology Consultation ---
Date of Consultation January 01, 2021 Assessment & Plan (1) Ureteral calculus, left: (2) Renal colic on left side: (3) History of nephrectomy, right: 60yo F with a hx of right nephrectomy admitted with intractable left flank pain and nausea secondary to a 7mm obstructing proximal left ureteral calculus with hydronephrosis. -Findings reviewed with Dr. العلي -She is afebrile -Labs reviewed, Wbc 15K and creatinine 2.72 -Blood cultures pending -Keep NPO -Strain all urine -Will check a KUB now to assess for stone location -Given her history of right nephrectomy and now with intractable left flank pain and hydronephrosis in the context of an obstructing 7mm proximal left ureteral stone, will proceed with OR for Cystoscopy, Left retrograde pyelogram and Left stent placement, possible Ureteroscopy, laser litho, stone basketing, possible ureteral dilation depending on findings. Risks and benefits to be reviewed with patient by Dr. العلي. OR notified. Preoperative CXR and EKG ordered. Renal dose Cipro given in ED. -Patient agreeable to above plan, all questions were answered. Supervising Physician Co-Signing Physician Notes Spoke with patient and plan on placing a stent as pt with solitary kidney and has pyuria and bacteria. Discussed risk and possible inability to place a stent and damage to the ureter History of Present Illness History of Present Illness The patient is a 60-year-old female with a PMHx including Right RCC s/p nephrectomy, HTN, dyslipidemia, nephrolithiasis, gastric bypass, GERD, anxiety, depression who presented to ER today with c/o Left flank pain and nausea x [address] abdomen pelvis was remarkable for an obstructing 7mm proximal left ureteral stone with hydronephrosis. Chart review: Afebrile, Wbc 15.02, Hgb 12.1, Cr 2.72. Blood cultures pending. IV Cipro, pain medication, and IVF given in ED. CT abdomen pelvis IMPRESSION: 1. Obstructing 7 x 5 x 4 mm proximal left ureteral calculus 2. Surgically absent right kidney 3. No evidence of bowel obstruction. No evidence of free air Patient examined at bedside in the ER this afternoon. Awake, resting in bed on arrival. She continues to have left flank pain and nausea. Pt states the left flank pain and nausea started last night and she did not get much sleep. She denies any fevers, but reports some chills. Denies vomiting. She states she has not urinated since yesterday. Denies dysuria or hematuria. Last ate at 6pm yesterday. Denies CP/SOB. Not currently on any anticoagulants. Denies any urinary issues at baseline. She has previously followed with urology in [place]. Hx of R nephrectomy > 10 years ago ( she is unsure of exact timeframe) Hx of nephrolithiasis with URS LL stent in the past Only known family hx of kidney stones is her grandmother Allergies Allergy/AdvReac Type Severity Reaction Status Date / Time Penicillins Allergy Severe ANAPHYLAXIS Verified 01/01/21 11:23 cat dander Allergy Intermediate Itching Verified 01/01/21 11:23 erythromycin base Allergy Intermediate Nausea/Vomi Verified 01/01/21 11:23 ting morphine Allergy Intermediate Migraine Verified 01/01/21 11:23 tramadol Allergy Intermediate Rash Verified 01/01/21 11:23 hydrocodone Allergy Unknown MIGRAIN Unverified 01/01/21 11:23 oxycodone [From Percocet] AdvReac Severe Migraine Verified 01/01/21 11:23 Dust Mite Extract Allergy Intermediate Sneezing Uncoded 01/01/21 11:23 and watery eyes [place] Allergy Intermediate Rash Uncoded 01/01/21 11:23 BIRD FEATHERS Allergy Unknown Rash Uncoded 01/01/21 11:23 Home Medications Medication Instructions Recorded Confirmed Type acetaminophen [Tylenol Extra 500 mg PO Q4 PRN 08/17/18 01/01/21 History Strength] atorvastatin 40 mg PO QPM 08/17/18 01/01/21 History biotin 1,000 mcg PO QPM 08/17/18 01/01/21 History bupropion HCl [Wellbutrin SR] 150 mg PO DAILY 08/17/18 01/01/21 History bupropion HCl [Wellbutrin SR] 300 mg PO HS 08/17/18 01/01/21 History cholecalciferol (vitamin D3) 1,000 unit PO QPM 08/17/18 01/01/21 History [Vitamin D3] cyanocobalamin (vitamin B-12) 100 mcg PO QPM 08/17/18 01/01/21 History [Vitamin B-12] escitalopram oxalate [Lexapro] 20 mg PO QPM 08/17/18 01/01/21 History lansoprazole [Prevacid] 30 mg PO DAILY 08/17/18 01/01/21 History magnesium oxide 400 mg PO QPM 08/17/18 01/01/21 History metoprolol tartrate 25 mg PO BID 08/17/18 01/01/21 History oxybutynin chloride 5 mg PO DAILY 08/17/18 01/01/21 History riboflavin (vitamin B2) 400 mg PO QPM 08/17/18 01/01/21 History albuterol sulfate 2 puff INHALATION Q4H PRN 01/01/21 01/01/21 History vitamins A,C,D-sbpn-bxumfx 2 tab PO DAILY 01/01/21 01/01/21 History [PreserVision AREDS] Patient History Medical History Depression with anxiety Dyslipidemia Exercise-induced asthma GERD (gastroesophageal reflux disease) H/O unilateral nephrectomy Right Hypertension Prediabetes Renal cancer Surgical History H/O gastric bypass History of nephrectomy, right Hx of cholecystectomy S/P ANNY-BSO Family History Mother Diabetes Sister Diabetes Other Cancer Hypertension Social History Smoking Status: Never smoker Hx Alcohol Use: No Preferred Language: Macedonian Communication Ability: Effective High School Director Required: No Beliefs That Will Affect Care: None Current Living Situation: Spouse and Family Feels Safe at Home: Yes Assistive Devices: Glasses Review of Systems Review of Systems: All systems reviewed & are unremarkable except as noted in HPI & below Physical Exam Constitutional: well developed and well nourished Respiratory: normal respiratory effort; no labored breathing Cardiovascular: Extremities: no calf tenderness Gastrointestinal (Abdomen): Percussion/Palpation: + abdomen tender (left side) and abdomen soft Musculoskeletal: Head/Neck/Chest: normocephalic Skin: Warm and dry. No visible rashes or lesions. Neurologic: awake; not confused Psychiatric: Orientation: alert, oriented x 3 and cooperative Genitourinary: + CVA tenderness (Left) Results & Data ([facility]) Vital Signs (Past 12 Hours) Vital Signs Temp Pulse Pulse Resp BP BP Pulse Ox 01/01/21 11:30 87 20 165/76 H 97 01/01/21 09:40 36.6 C 62 20 182/84 H 97 PG Care Time/CCT Total # of Minutes Spent Total Time Spent with Patient: Total time spent is greater than 50% in coordination of care (as documented) at patient's floor/unit and/or counseling patient: Coding Level of Care Code 52342 Inpt Consult Level 4 Diagnoses Ureteral calculus, left N20.1 Renal colic on left side N23 History of nephrectomy, right Z90.5
--- NOTE | 2021-01-01 14:53 | Emergency Department Note ---
History of Present Illness General Chief Complaint: Abdominal Pain Stated Complaint: ABD PAIN Time Seen by Provider: 01/01/21 09:45 History of Present Illness Provider Complaint: abdominal pain Onset (ago): 2 day(s) Pain Consistency: intermittent Location: L flank Radiation: RLQ Migration to: no migration Severity: moderate Maximum Pain Intensity: 8 Current Pain Intensity: 8 Quality: + stabbing and + sharp Relieved By: + nothing Exacerbated By: + nothing Context: no foreign travel, no possible food poisoning, no sick contacts, no recent antibiotic use, no recent surgery/procedure and no history of similar episodes Associated Symptoms: no nausea, no vomiting, no diarrhea, no fever, no chills, no hematemesis, no melena, no hematuria, no anorexia, no syncope, no headache, no neck pain, no back pain, no chest pain, no weakness, no breathing difficulty and no numbness Patient states she has not been able to urinate since last night. Home Medications Medication Instructions Recorded Confirmed Type acetaminophen [Tylenol Extra 500 mg PO Q4 PRN 08/17/18 01/01/21 History Strength] atorvastatin 40 mg PO QPM 08/17/18 01/01/21 History biotin 1,000 mcg PO QPM 08/17/18 01/01/21 History bupropion HCl [Wellbutrin SR] 150 mg PO DAILY 08/17/18 01/01/21 History bupropion HCl [Wellbutrin SR] 300 mg PO HS 08/17/18 01/01/21 History cholecalciferol (vitamin D3) 1,000 unit PO QPM 08/17/18 01/01/21 History [Vitamin D3] cyanocobalamin (vitamin B-12) 100 mcg PO QPM 08/17/18 01/01/21 History [Vitamin B-12] escitalopram oxalate [Lexapro] 20 mg PO QPM 08/17/18 01/01/21 History lansoprazole [Prevacid] 30 mg PO DAILY 08/17/18 01/01/21 History magnesium oxide 400 mg PO QPM 08/17/18 01/01/21 History metoprolol tartrate 25 mg PO BID 08/17/18 01/01/21 History oxybutynin chloride 5 mg PO DAILY 08/17/18 01/01/21 History riboflavin (vitamin B2) 400 mg PO QPM 08/17/18 01/01/21 History albuterol sulfate 2 puff INHALATION Q4H PRN 01/01/21 01/01/21 History vitamins A,C,G-reow-amqwwf 2 tab PO DAILY 01/01/21 01/01/21 History [PreserVision AREDS] Allergies Allergy/AdvReac Type Severity Reaction Status Date / Time Penicillins Allergy Severe ANAPHYLAXIS Verified 01/01/21 11:23 cat dander Allergy Intermediate Itching Verified 01/01/21 11:23 erythromycin base Allergy Intermediate Nausea/Vomi Verified 01/01/21 11:23 ting morphine Allergy Intermediate Migraine Verified 01/01/21 11:23 tramadol Allergy Intermediate Rash Verified 01/01/21 11:23 hydrocodone Allergy Unknown MIGRAIN Unverified 01/01/21 11:23 oxycodone [From Percocet] AdvReac Severe Migraine Verified 01/01/21 11:23 Dust Mite Extract Allergy Intermediate Sneezing Uncoded 01/01/21 11:23 and watery eyes [place] Allergy Intermediate Rash Uncoded 01/01/21 11:23 BIRD FEATHERS Allergy Unknown Rash Uncoded 01/01/21 11:23 Past Med/Surg History Medical History Depression with anxiety Dyslipidemia Exercise-induced asthma GERD (gastroesophageal reflux disease) H/O unilateral nephrectomy Right Hypertension Prediabetes Renal cancer Surgical History H/O gastric bypass History of nephrectomy, right Hx of cholecystectomy S/P ANNY-BSO Family History Mother Diabetes Sister Diabetes Other Cancer Hypertension Social History Smoking Status: Never smoker Hx Alcohol Use: No Preferred Language: Belarusian Communication Ability: Effective Business Applications Specialist Required: No Beliefs That Will Affect Care: None Current Living Situation: Spouse and Family Feels Safe at Home: Yes Assistive Devices: Glasses Review of Systems A total of 10 systems reviewed and were otherwise negative Physical Exam Vital Signs: Vital Signs - 24 hr 01/01/21 09:40 01/01/21 11:30 01/01/21 14:00 Temperature 36.6 C Temperature Source Temporal Artery Sc an Pulse Rate 62 Pulse Rate [Right Finger] 87 81 Pulse Rhythm [Righ t Finger] Regular Regular Pulse Strength [Ri ght Finger] Normal Normal Respiratory Rate 20 20 18 Respiratory Effort / Characteristics Non-Labored Sponta neous Non-Labored Sponta neous Respiratory Depth Normal Normal Respiratory Patter n Regular Regular Blood Pressure 182/84 H Blood Pressure [Ri ght Arm] 165/76 H 160/95 H Blood Pressure Claudia n 116 Blood Pressure Claudia n [Right Arm] 105 116 Blood Pressure Pos ition [Right Arm] Sitting Pulse Oximetry 97 97 98 Oxygen Delivery Me thod Room Air Room Air Room Air Sepsis Recent Feve r Within 48 Hours No Sepsis New/Unexpla ined Change in Men kevin Status No Sepsis Action Take n by Nursing No Action Required Physical Exam: Physical Exam GENERAL: She is oriented to person, place, and time. She appears well-developed and well-nourished. She does not appear distressed. HENT: Exam performed. -Head: Normocephalic and atraumatic. -Right Ear: External ear normal. No mastoid tenderness. -Left Ear: External ear normal. No mastoid tenderness. -Mouth/Throat: The oropharynx is clear and moist. No trismus in the jaw. No dental abscesses or uvula swelling. No oropharyngeal exudate or tonsillar abscesses. EYES: Conjunctivae and EOM are normal. Pupils are equal, round, and reactive to light. Right eye exhibits no discharge. Left eye exhibits no discharge. No scleral icterus. NECK: Normal range of motion. Neck supple. No JVD present. No spinous process te nderness present. No carotid bruit present. No rigidity. No tracheal deviation and normal range of motion present. No Brudzinski's sign and no Kernig's sign noted. CV: Normal rate, regular rhythm, normal heart sounds and intact distal pulses. There is no peripheral edema. Palpable radial pulses bue. PULM/CHEST: Effort normal and breath sounds normal. No respiratory distress. No stridor. She has no wheezes. She has no rales. -Chest Wall: She exhibits no tenderness. ABD: The abdomen is soft. Bowel sounds are normal. She has no distension. No mass is present. There is tenderness to palpation of the left lower quadrant. There is no rebound, no guarding, no Lewis's sign and no tenderness at McBurney's point. Rovsig negative. Left-sided CVA tenderness. MUSC/SKEL: Normal range of motion. There is no peripheral edema, tenderness or deformity. LYMPH: No cervical adenopathy. NEURO: She is alert and oriented to person, place, and time. She has normal strength. No cranial nerve deficit or sensory deficit. Coordination and gait normal. GCS eye subscore is 4. GCS verbal subscore is 5. GCS motor subscore is 6. Cerebellar tests wnl. SKIN: Skin is warm and dry. She is not diaphoretic. PSYCH: She has a normal mood and affect. Behavior is normal. Judgment and thought content normal. Course Course 0945: The patient was evaluated in room C1. A complete history and physical exam was performed. 1155: Vital signs stable. Patient reports her pain is better status post Analgesia in the emergency department. Labs show leukocytosis of 15. Patient's creatinine is 2.72. Her baseline creatinine is within normal limits. Imaging shows a large left-sided kidney stone. Given the patient's leukocytosis and inability urinate, patient will be empirically treated with antibiotics. Patient has an anaphylactic reaction to penicillin and thus Cipro IV piggyback was ordered for the patient. Spoke with urologyCRNP who answered for Dr. العلي who stated to admit to medicine and urology will be on consult. Urology stated that the patient should remain n.p.o. as he will most likely put in a stent later today. Discussed with Sweetie Christiansen PA-C who stated to admit to Administered Medications Morphine Sulfate (Morphine Sulfate 2 Mg/Ml Carp) 2 mg IV Q3H PRN PRN Reason: Moderate Pain Stop: 01/15/21 12:48 Last Admin: 01/01/21 13:51 Dose: 2 mg Documented by: [id number] Discontinued Medications Acetaminophen (Ofirmev) 1,000 mg in 100 mls @ 400 mls/hr IV NOW STA Stop: 01/01/21 10:14 Last Infusion: 01/01/21 10:38 Dose: 0 mls/hr Documented by: [id number] Admin: 01/01/21 10:18 Dose: 400 mls/hr Documented by: [id number] Sodium Chloride (Nss 1000ml) 1,000 mls @ 999 mls/hr IV .Q1H1M ONE Stop: 01/01/21 11:00 Last Infusion: 01/01/21 11:59 Dose: 0 mls/hr Documented by: [id number] Admin: 01/01/21 10:18 Dose: 999 mls/hr Documented by: [id number] Ciprofloxacin (Cipro / D5w) 400 mg in 200 mls @ 100 mls/hr IV NOW STA; Protocol Stop: 01/01/21 13:26 Last Infusion: 01/01/21 14:12 Dose: 0 mls/hr Documented by: [id number] Admin: 01/01/21 11:59 Dose: 100 mls/hr Documented by: [id number] Sodium Chloride (Nss 1000ml) 500 mls @ 999 mls/hr IV .Q31M ONE Stop: 01/01/21 13:31 Last Infusion: 01/01/21 14:42 Dose: 0 mls/hr Documented by: [id number] Admin: 01/01/21 13:51 Dose: 999 mls/hr Documented by: [id number] Metoprolol Tartrate (Metoprolol Tartrate 25 Mg Tab) 25 mg PO ONE ONE Stop: 01/01/21 13:17 Last Admin: 01/01/21 14:12 Dose: 25 mg Documented by: [id number] Morphine Sulfate (Morphine Sulfate 2 Mg/Ml Carp) 2 mg IV NOW STA Stop: 01/01/21 10:02 Last Admin: 01/01/21 10:18 Dose: 2 mg Documented by: [id number] Ondansetron HCl (Ondansetron Inj 2 Mg/Ml 2 Ml Vial) 4 mg IV NOW STA Stop: 01/01/21 10:01 Last Admin: 01/01/21 10:18 Dose: 4 mg Documented by: [id number] Ondansetron HCl (Ondansetron Inj 2 Mg/Ml 2 Ml Vial) 4 mg IV NOW STA Stop: 01/01/21 13:16 Last Admin: 01/01/21 13:51 Dose: 4 mg Documented by: [id number] Medical Decision Making Laboratory Data Result diagrams: 01/01/21 10:06 01/01/21 10:06 Lab Results 01/01/21 01/01/21 01/01/21 Range/Units 10:06 10:06 13:17 WBC 15.02 H (4.8-10.8) K/uL RBC 4.23 (4.2-5.4) M/uL Hgb 12.1 (12.0-16.0) g/dL Hct 37.5 (37-47) % MCV 88.7 (80-100) fL MCH 28.6 (25-34) pg MCHC 32.3 (32-36) g/dL RDW Std Deviation 47.6 H (36.4-46.3) fL RDW Coeff of [place] 14.7 H (11.5-14.5) % Plt Count 236 (130-400) K/uL MPV 9.9 (7.4-10.4) fL Immature Gran % (Auto) 0.1 % Neut % (Auto) 90.4 % Lymph % (Auto) 5.3 % [place] % (Auto) 3.9 % Eos % (Auto) 0.2 % Baso % (Auto) 0.1 % Neut # (Auto) 13.57 H (1.4-6.5) K/uL Lymph # (Auto) 0.79 L (1.2-3.4) K/uL [place] # (Auto) 0.59 (0.11-0.59) K/uL Eos # (Auto) 0.03 (0-0.5) K/uL Baso # (Auto) 0.02 (0-0.2) K/uL Immature Gran # (Auto) 0.02 (0.00-0.02) K/uL Sodium 141 (136-145) mmol/L Potassium 4.4 (3.5-5.1) mmol/L Chloride 109 H (98-107) mmol/L Carbon Dioxide 26 (21-32) mmol/L Anion Gap 6.0 (3-11) BUN 28 H (7-18) mg/dl Creatinine 2.72 H (0.6-1.2) mg/dl Est Cr Clr Drug Dosing 25.2 ml/min Est GFR ( Amer) 21.2 Est GFR (Non-Af Amer) 18.2 BUN/Creatinine Ratio 10.3 (10-20) Glucose 150 H (70-99) mg/dl Calcium 10.2 H (8.5-10.1) mg/dl Total Bilirubin 0.6 (0.2-1) mg/dl Direct Bilirubin 0.2 (0-0.2) mg/dl AST 34 (15-37) U/L ALT 52 (12-78) U/L Alkaline Phosphatase 134 H (45-117) U/L Total Protein 7.1 (6.4-8.2) gm/dl Albumin 3.7 (3.4-5.0) gm/dl Lipase 157 (73-393) U/L COVID-19 Eval [email or web address] SARS-CoV-2, RNA, NAAT (NEGATIVE) 01/01/21 Range/Units 13:17 WBC (4.8-10.8) K/uL RBC (4.2-5.4) M/uL Hgb (12.0-16.0) g/dL Hct (37-47) % MCV (80-100) fL MCH (25-34) pg MCHC (32-36) g/dL RDW Std Deviation (36.4-46.3) fL RDW Coeff of [place] (11.5-14.5) % Plt Count (130-400) K/uL MPV (7.4-10.4) fL Immature Gran % (Auto) % Neut % (Auto) % Lymph % (Auto) % [place] % (Auto) % Eos % (Auto) % Baso % (Auto) % Neut # (Auto) (1.4-6.5) K/uL Lymph # (Auto) (1.2-3.4) K/uL [place] # (Auto) (0.11-0.59) K/uL Eos # (Auto) (0-0.5) K/uL Baso # (Auto) (0-0.2) K/uL Immature Gran # (Auto) (0.00-0.02) K/uL Sodium (136-145) mmol/L Potassium (3.5-5.1) mmol/L Chloride (98-107) mmol/L Carbon Dioxide (21-32) mmol/L Anion Gap (3-11) BUN (7-18) mg/dl Creatinine (0.6-1.2) mg/dl Est Cr Clr Drug Dosing ml/min Est GFR ( Amer) Est GFR (Non-Af Amer) BUN/Creatinine Ratio (10-20) Glucose (70-99) mg/dl Calcium (8.5-10.1) mg/dl Total Bilirubin (0.2-1) mg/dl Direct Bilirubin (0-0.2) mg/dl AST (15-37) U/L ALT (12-78) U/L Alkaline Phosphatase (45-117) U/L Total Protein (6.4-8.2) gm/dl Albumin (3.4-5.0) gm/dl Lipase (73-393) U/L COVID-19 Eval Order SARS-CoV-2, RNA, NAAT NEGATIVE (NEGATIVE) Imaging Data Radiologist's Impression: CT SCAN OF THE ABDOMEN AND PELVIS WITHOUT CONTRAST CLINICAL HISTORY: L flank and LLQ pain COMPARISON STUDY: 04/16/2018 TECHNIQUE: CT scan of the abdomen and pelvis was performed from the lung bases to the proximal femurs. Images are reviewed in the axial, sagittal, and coronal planes. IV contrast was not administered for this examination. A dose lowering technique was utilized adhering to the principles of ALARA. CT DOSE: 669.16 mGy.cm FINDINGS: Lower chest: There is subtle groundglass attenuation of the dependent portion of the lower lobes. There are no significant pleural effusions. Liver: There is stable 25 mm left hepatic lobe hypodensity, likely representing a cyst. Gallbladder: Surgically absent Spleen: Normal in size and attenuation. Pancreas: Unremarkable. Adrenal glands: There is a stable 18 mm right adrenal nodule likely representing an adenoma Kidneys: The right kidney appears surgically absent. There is left-sided hydronephrosis, hydroureter, and perinephric stranding. There is an obstructing proximal left ureteral calculus measuring 7 x 5 x 4 mm. This is located at the L3-4 level. Bowel: There are no transition zones to indicate bowel obstruction. There are postsurgical changes of a gastric bypass. There is no evidence of acute diverticulitis. By history the appendix is surgically absent Peritoneum: There is no intraperitoneal free air or abdominal ascites. Vasculature: The abdominal aorta is normal in course and caliber. Adenopathy: None. Pelvic viscera: The uterus appears surgically absent Skeletal structures: No destructive osseous lesions are seen. IMPRESSION: 1. Obstructing 7 x 5 x 4 mm proximal left ureteral calculus 2. Surgically absent right kidney 3. No evidence of bowel obstruction. No evidence of free air ACT 112: Negative or not required by law. Electronically signed by: Colton Amanda M.D. 01/01/2021 11:15 AM MDM Narrative Vital signs stable. Patient reports her pain is better status post Analgesia in the emergency department. Labs show leukocytosis of 15. Patient's creatinine is 2.72. Her baseline creatinine is within normal limits. Imaging shows a large left-sided kidney stone. Given the patient's leukocytosis and inability urinate, patient will be empirically treated with antibiotics. Patient has an anaphylactic reaction to penicillin and thus Cipro IV piggyback was ordered for the patient. Spoke with urologyCRNP who answered for Dr. العلي who stated to admit to medicine and urology will be on consult. Urology stated that the patient should remain n.p.o. as he will most likely put in a stent later today. Discussed with Sweetie Christiansen PA-C who stated to admit to Impression & Plan Kidney stone, IRAM (acute kidney injury) Discharge Plan Visit Data Chief Complaint: Abdominal Pain Stated Complaint: ABD PAIN ED Provider: Puma Mejia Discharge Problem: Kidney stone, IRAM (acute kidney injury) Patient Disposition: Admitted As Inpatient Forms Stand Alone Forms: [facility] Prescriptions Prescriptions: No Action atorvastatin 40 mg Tablet 40 mg PO QPM RF: 0 bupropion HCl [Wellbutrin SR] 150 mg Tablet Sustained-Release 12 Hr 150 mg PO DAILY RF: 0 cyanocobalamin (vitamin B-12) [Vitamin B-12] 100 mcg Tablet 100 mcg PO QPM RF: 0 acetaminophen [Tylenol Extra Strength] 500 mg Tablet 500 mg PO Q4 PRN (Reason: Fever Or Pain) RF: 0 magnesium oxide 400 mg (241.3 mg magnesium) Tablet 400 mg PO QPM RF: 0 lansoprazole [Prevacid] 30 mg Capsule,Delayed Release(Dr/Ec) 30 mg PO DAILY RF: 0 oxybutynin chloride 5 mg Tablet Extended Release 24hr 5 mg PO DAILY RF: 0 escitalopram oxalate [Lexapro] 20 mg Tablet 20 mg PO QPM RF: 0 metoprolol tartrate 25 mg Tablet 25 mg PO BID RF: 0 cholecalciferol (vitamin D3) [Vitamin D3] 1,000 unit Tablet 1,000 unit PO QPM RF: 0 biotin 1,000 mcg Tablet,Chewable 1,000 mcg PO QPM RF: 0 riboflavin (vitamin B2) 400 mg Tablet 400 mg PO QPM RF: 0 bupropion HCl [Wellbutrin SR] 150 mg Tablet Sustained-Release 12 Hr 300 mg PO HS RF: 0 albuterol sulfate 90 mcg/actuation HFA aerosol inhaler 2 puff INHALATION Q4H PRN (Reason: Shortness Of Breath) RF: 0 PreserVision AREDS 7,160 unit- 113 mg-100 unit Tablet 2 tab PO DAILY RF: 0 Referrals Referrals: Kaleb Harmon MD [Primary Care Provider] -
[2021-01-01] MEDS ORDERED: ALBUTEROL HFA 8 GM INHALER INH PRN (17:00)
[2021-01-01] MEDS ORDERED: POLYETHYLENE (MIRALAX) 17 GM PACK PO PRN (17:00)
[2021-01-01] MEDS: ONDANSETRON INJ 2 MG/ML 2 ML VIAL IV PRN (17:15)
[2021-01-01] MEDS: SODIUM CHLORIDE 0.9% 1000ML 1,000 ML IV SCH (18:21)
[2021-01-01] MEDS ORDERED: PROPOFOL IV EMULSION 10 MG/ML 20 ML VIAL IV ONE (18:43)
[2021-01-01] MEDS ORDERED: ePHEDrine sulfate 50 MG/ML SYR ONE (18:43)
[2021-01-01] MEDS ORDERED: PHENYLEPHRINE 100MCG/ML 5ML SYR ONE (18:43)
[2021-01-01] MEDS ORDERED: LIDOCAINE HCL 2% 2 ML VIAL/AMP(20MG/ML) INFIL ONE ×2 (18:43→19:18)
[2021-01-01] MEDS ORDERED: ONDANSETRON INJ 2 MG/ML 2 ML VIAL ONE (18:43)
[2021-01-01] MEDS ORDERED: MIDAZOLAM HCL 1 MG/ML 2ML VIAL ONE (18:44)
[2021-01-01] MEDS ORDERED: fentaNYL citrate 100 MCG/2 ML VIAL ONE (18:44)
--- NOTE | 2021-01-01 18:46 | XRay Report ---
XR chest 1V portable HISTORY: Preop. COMPARISON: Chest 08/17/2018. FINDINGS: The lungs are clear. No pleural effusions. No pneumothorax. The heart remains borderline en larged. IMPRESSION: Stable borderline cardiomegaly. No acute process within the chest. ACT 112: Negative or not required by law. Electronically signed by: Maxim Sargent M.D. 01/01/2021 6:45 PM
--- NOTE | 2021-01-01 18:47 | XRay Report ---
KUB HISTORY: Left ureteral stone COMPARISON: Abdomen and pelvis CT 01/01/2021. FINDINGS: The bowel gas pattern is unremarkable. There are no dilated loops of small bowel to suggest an obstruction. Multiple surgical clips seen within the abdomen. This is secondary to a prior right nephrectomy. No left renal calculi. Stable 7 mm stone within the proximal left ureter overlying the left L4 transverse process. No pneumoperitoneum or pneumatosis. IMPRESSION: 1. No change in position of the 7 mm proximal left ureteral stone. 2. Prior right nephrectomy. ACT 112: Negative or not required by law. Electronically signed by: Maxim Sargent M.D. 01/01/2021 6:46 PM
[2021-01-01] MEDS ORDERED: SUCCINYLCHOLINE CHLORIDE 20 MG/ML 10 ML VIAL IV ONE (18:55)
--- NOTE | 2021-01-01 19:00 | Anesthesiology Consultation ---
Date of Service January 01, 2021 Assessment & Plan Chart Review Chart Review: Acceptable Risk for Surgery Consults Requested none History Surgery Operation Date: 01/01/21 10:45 Proposed Procedures p Cystoscopy, Left Retrograde Pyelogram, with Stent Insertion - Paul العلي MD Height/Weight Height: 5 ft 5 in Weight: 95.9 kg Allergies Allergy/AdvReac Type Severity Reaction Status Date / Time Penicillins Allergy Severe ANAPHYLAXIS Verified 01/01/21 11:23 cat dander Allergy Intermediate Itching Verified 01/01/21 11:23 erythromycin base Allergy Intermediate Nausea/Vomi Verified 01/01/21 11:23 ting morphine Allergy Intermediate Migraine Verified 01/01/21 11:23 tramadol Allergy Intermediate Rash Verified 01/01/21 11:23 hydrocodone Allergy Unknown MIGRAIN Unverified 01/01/21 11:23 oxycodone [From Percocet] AdvReac Severe Migraine Verified 01/01/21 11:23 Dust Mite Extract Allergy Intermediate Sneezing Uncoded 01/01/21 11:23 and watery eyes [place] Allergy Intermediate Rash Uncoded 01/01/21 11:23 BIRD FEATHERS Allergy Unknown Rash Uncoded 01/01/21 11:23 Medications Home Medications Medication Instructions Recorded Confirmed Last Taken acetaminophen [Tylenol Extra 500 mg PO Q4 PRN 08/17/18 01/01/21 Unknown Strength] atorvastatin 40 mg PO QPM 08/17/18 01/01/21 12/31/20 biotin 1,000 mcg PO QPM 08/17/18 01/01/21 12/31/20 bupropion HCl [Wellbutrin SR] 150 mg PO DAILY 08/17/18 01/01/21 12/31/20 bupropion HCl [Wellbutrin SR] 300 mg PO HS 08/17/18 01/01/21 12/31/20 cholecalciferol (vitamin D3) 1,000 unit PO QPM 08/17/18 01/01/21 12/31/20 [Vitamin D3] cyanocobalamin (vitamin B-12) 100 mcg PO QPM 08/17/18 01/01/21 12/31/20 [Vitamin B-12] escitalopram oxalate [Lexapro] 20 mg PO QPM 08/17/18 01/01/21 12/31/20 lansoprazole [Prevacid] 30 mg PO DAILY 08/17/18 01/01/21 12/31/20 magnesium oxide 400 mg PO QPM 08/17/18 01/01/21 12/31/20 metoprolol tartrate 25 mg PO BID 08/17/18 01/01/21 12/31/20 oxybutynin chloride 5 mg PO DAILY 08/17/18 01/01/21 12/31/20 riboflavin (vitamin B2) 400 mg PO QPM 08/17/18 01/01/21 12/31/20 albuterol sulfate 2 puff INHALATION Q4H PRN 01/01/21 01/01/21 Unknown vitamins A,C,J-trph-yvtiks 2 tab PO DAILY 01/01/21 01/01/21 Unknown [PreserVision AREDS] Active Medications Generic Name Dose Route Start Last Admin Trade Name Freq PRN Reason Stop Dose Admin Sodium Chloride 1,000 mls @ 125 mls/hr 01/01/21 17:00 01/01/21 18:21 Nss 1000ml IV 01/02/21 08:59 125 mls/hr .Q8H DIETER Administration Morphine Sulfate 2 mg 01/01/21 12:49 01/01/21 17:11 Morphine Sulfate 2 Mg/Ml Carp IV 01/15/21 12:48 2 mg Q3H PRN Administration Moderate Pain Ondansetron HCl 4 mg 01/01/21 17:00 01/01/21 17:15 Ondansetron Inj 2 Mg/Ml 2 Ml Vial IV 01/31/21 16:59 4 mg Q6H PRN Administration Nausea NPO Date Last Intake of Fluids: 12/31/20 Time Last Intake of Fluids: 18:00 Date Last Intake of Solids: 12/31/20 Time Last Intake of Solids: 18:00 Past Medical History Medical History Depression with anxiety Dyslipidemia Exercise-induced asthma GERD (gastroesophageal reflux disease) H/O unilateral nephrectomy Right Hypertension Prediabetes Renal cancer Past Family History Family History Mother Diabetes Sister Diabetes Other Cancer Hypertension Past Surgical History Surgical History H/O gastric bypass History of nephrectomy, right Hx of cholecystectomy S/P ANNY-BSO Social History Smoking Status: Never smoker Hx Alcohol Use: No Hx Substance Use: No substance use type: does not use Last Used Substance: Days (ago) Physical Exam Vital Signs Last Vital Signs Temp 37.4 C 01/01/21 18:45 Pulse 69 01/01/21 18:45 Resp 20 01/01/21 18:45 BP 208/119 H 01/01/21 18:45 Pulse Ox 95 01/01/21 18:45 Testing Laboratory Results 01/01/21 10:06 01/01/21 10:06
[2021-01-01] MEDS ORDERED: ePHEDrine sulfate 50 MG/ML AMP IV PRN (19:02)
[2021-01-01] MEDS ORDERED: ATROPINE SULFATE 0.1 MG/ML 10ML SYR IV PRN (19:02)
[2021-01-01] MEDS ORDERED: PROMETHAZINE HCL 12.5 MG in SODIUM CHLORIDE 0.9% 50 ML IV PRN (19:02)
[2021-01-01] MEDS ORDERED: METOCLOPRAMIDE HCL INJ 5 MG/ML 2 ML VIAL IV PRN (19:02)
[2021-01-01] MEDS ORDERED: fentaNYL citrate 100 MCG/2 ML VIAL IV PRN (19:02)
[2021-01-01] MEDS ORDERED: ONDANSETRON INJ 2 MG/ML 2 ML VIAL IV PRN (19:02)
[2021-01-01] MEDS ORDERED: HYDROmorphone INJ 2 MG/ML SYR/VIAL IV PRN (19:02)
[2021-01-01] MEDS ORDERED: LARYING-O-JET KIT (LTA) ONE (19:18)
[2021-01-01] MEDS ORDERED: DEXAMETHASONE SOD INJ 4 MG/ML VIAL ONE (19:18)
--- NOTE | 2021-01-01 19:35 | Post Operative Brief Note ---
PG Immediate Post Op with CF Date of Surgery January 01, 2021 Pre & Post Diagnosis Operation Date: 01/01/21 10:45 Pre-Op Diagnosis: Ureteral calculus, left Post-Op Diagnosis: Ureteral calculus, left I identified the patient and participated in the time-out.: Yes Procedure Operation Date: 01/01/21 10:45 Actual Procedures p Cystoscopy, Left Retrograde Pyelogram, with Stent Insertion(Left) - Paul العلي MD Surgeon Paul العلي MD Archery Instructor none Estimated Blood Loss 0 Findings Consistent with Post-Op Diagnosis Specimens Specimen Description: Culture 1. urine
[2021-01-01] MEDS ORDERED: DIATRIZOATE MEGLUMINE 30% 100ML VIAL INSTIL PRN (19:51)
--- NOTE | 2021-01-01 20:02 | Fluoroscopy Report ---
FL retrograde includes kub CLINICAL HISTORY: CYSTO STENT PLACEMENT COMPARISON STUDY: None. FLUOROSCOPY TIME: 28 seconds. FINDINGS: 2 fluoroscopic spot images of the abdomen demonstrate retrograde opacification of the left renal collection system. This is followed by placement of a left ureteral stent. Only the proximal po rtion of the stent is identified and appears in good position. IMPRESSION: Fluoroscopy provided for left ureteral stent placement. ACT 112: Negative or not required by law. Electronically signed by: Maxim Sargent M.D. 01/01/2021 8:01 PM
--- NOTE | 2021-01-01 20:38 | Anesthesiology Progress Note ---
Date of Service January 01, 2021 Anesthesia Post Procedure Vital Signs Vital Signs: Temp Pulse Pulse Pulse Resp BP BP 01/01/21 20:25 36.9 C 66 14 160/84 H 01/01/21 20:15 69 16 158/76 H 01/01/21 20:05 72 17 140/78 01/01/21 19:55 72 16 158/86 H 01/01/21 19:49 36.4 C L 74 17 168/83 H 01/01/21 18:45 37.4 C 69 20 01/01/21 16:15 36.7 C 60 01/01/21 14:00 81 18 01/01/21 11:30 87 20 01/01/21 09:40 36.6 C 62 20 182/84 H BP Pulse Ox 01/01/21 20:25 99 01/01/21 20:15 98 01/01/21 20:05 92 01/01/21 19:55 98 01/01/21 19:49 97 01/01/21 18:45 208/119 H 95 01/01/21 16:15 167/92 H 01/01/21 14:00 160/95 H 98 01/01/21 11:30 165/76 H 97 01/01/21 09:40 97 Pain Intensity Left Flank: Pain Intensity: 8 Transfer of Care Handoff Completed per policy Notes Mental Status: alert / awake / arousable and participated in evaluation Patient Amnestic to Procedure: Yes Nausea / Vomiting: adequately controlled Pain: adequately controlled Airway Patency, RR, SpO2: stable & adequate BP & HR: stable & adequate Hydration State: stable & adequate Anesthetic Complications: no major complications apparent
[2021-01-01] MEDS: CHOLECALCIFEROL 1,000 UNITS 25 MCG TAB PO SCH (20:54)
[2021-01-01] MEDS: ESCITALOPRAM OXALATE 20 MG TAB PO SCH (20:54)
[2021-01-01] MEDS: CYANOCOBALAMIN (VITAMIN B-12) 100 MCG TABLET PO SCH (20:54)
[2021-01-01] MEDS: buPROPion SR 150 MG TABCR PO SCH (20:54)
[2021-01-01] MEDS: METOPROLOL TARTRATE 25 MG TAB PO SCH (20:55)
[2021-01-01] MEDS: ATORVASTATIN 40 MG TAB PO SCH (20:55)
[2021-01-01] MEDS: MAGNESIUM OXIDE 400 MG TAB PO SCH (20:55)
[2021-01-01] MEDS ORDERED: NON-FORMULARY MEDICATION (Riboflavin (Vitamin B2) 400 mg Tablet) PO SCH (21:00)
--- NOTE | 2021-01-01 21:02 | Operative Report (OR) ---
DATE OF OPERATION: 01/01/2021 PROCEDURE PERFORMED: Cystoscopy and left stent placement. PREOPERATIVE DIAGNOSES: Left ureteral obstruction and solitary kidney. POSTOPERATIVE DIAGNOSIS: Left ureteral obstruction and solitary kidney. SURGEON: Paul العلي MD ANESTHESIA: General. INDICATIONS: The patient is a 60-year-old female status post right nephrectomy for cancer, who has a previous history of stones, who presents with a left obstructing proximal 7 x 4 ureteral stone, who is anuric and had some elevated white blood cell count, question of some pyuria. The patient was taken for stent placement in preparation for subsequent ureteroscopy once she is recovered, had antibiotics, and the stent has been dilated given the solitary kidney. DESCRIPTION OF THE PROCEDURE: The patient was taken to the operating room where general anesthesia was administered. She was placed in dorsal lithotomy position prior to being prepped and draped in the usual sterile fashion with Venodyne stockings. She had been given ciprofloxacin earlier in the day. A 21-Nigerian cystoscope was placed. The left ureteral orifice was cannulized. Retrograde was performed to an obstructing stone. No contrast was seen beyond that. I was able to pass a dual-flex guidewire beyond the stone into the renal pelvis, passed the 5-Nigerian open-ended catheter over the guidewire into the renal pelvis, removed excess fluid from the renal pelvis, and sent it for culture. Subsequently placed some contrast in the renal pelvis, left the guidewire in place, and then passed a 4.8-Nigerian 26 cm stent over the guidewire without difficulty with a good curl in the renal pelvis and a good curl in the bladder. The patient's bladder was emptied and she was transferred to the recovery room in stable condition. I attest to the content of the Intraoperative Record and any orders documented therein. Any exception s are noted below.
[2021-01-01 21:13] LABS: Appearance Urine Cloudy (Clear); Bilirubin Urine Negative (Negative); Blood Urine 3+ (Negative); Color Urine Dark Yellow; Glucose Urine UA Negative (Negative); Ketones Urine Negative (Negative); Leukocyte Esterase Urine Trace (Negative); Nitrite Urine Negative (Negative); Protein Urine 3+ (Negative); Specific Gravity Urine 1.013 (1.000-1.030); Urobilinogen Urine Negative (Negative); pH Urine 6.5 (4.5-7.5)
[2021-01-01 21:23] LABS: Epithelial Cell Urine 20-30 /lpf (0-5); RBC Urine >30 /hpf (0-4)
[2021-01-01 21:24] LABS: Bacteria Urine Negative (Negative); Calcium Oxalate Crystals Urine Present (None Prsent)
[2021-01-02] MEDS: SODIUM CHLORIDE 0.9% 1000ML 1,000 ML IV SCH (00:30)
[2021-01-02] MEDS: CIPROFLOXACIN / D5W 200 MG/100 ML BAG IV SCH ×2 (05:44→23:53)
[2021-01-02 06:05] LABS: Hematocrit (blood only) 33.5 % (37-47); Hemoglobin 10.6 g/dL (12.0-16.0); Immature Granulocytes # (auto) 0.03 K/uL (0.00-0.02); Immature Granulocytes % (auto) 0.2 %; Lymphocytes % (auto) 4.2 %; Mean Corpuscular Hgb Conc 31.6 g/dL (32-36); Mean Corpuscular Volume 88.4 fL (80-100); Mean Platelet Volume 9.5 fL (7.4-10.4); Monocytes # (auto) 0.68 K/uL (0.11-0.59); Monocytes % (auto) 4.8 %; Neutrophils # (auto) 12.96 K/uL (1.4-6.5); Neutrophils % (auto) 90.8 %; Nucleated RBC # (auto) 0.07 K/uL (0-0); Nucleated RBC % (auto) 0.5 %; Platelet Count 207 K/uL (130-400); RDW Coefficient of Variation 14.7 % (11.5-14.5); RDW Standard Deviation 47.6 fL (36.4-46.3); Red Blood Count 3.79 M/uL (4.2-5.4); White Blood Count 14.27 K/uL (4.8-10.8)
[2021-01-02 06:35] LABS: BUN Creatinine Ratio 10.1 (10-20); Calcium 9.7 mg/dl (8.5-10.1); Creatinine Clr Calc Pharmacy 20.6 ml/min; Est GFR (African American) 16.4; Est GFR (Non-African American) 14.2; Potassium 4.6 mmol/L (3.5-5.1)
[2021-01-02] MEDS: ACETAMINOPHEN 325 MG TAB PO PRN ×3 (07:47→20:05)
[2021-01-02] MEDS: METOPROLOL TARTRATE 25 MG TAB PO SCH ×2 (07:48→20:04)
[2021-01-02] MEDS: LANSOPRAZOLE 30 MG SOLTAB PO SCH (07:48)
[2021-01-02] MEDS: buPROPion SR 150 MG TABCR PO SCH ×2 (07:48→20:05)
--- NOTE | 2021-01-02 10:14 | Nephrology Consultation ---
Date of Consultation January 02, 2021 Assessment & Plan (1) IRAM (acute kidney injury): stage 3 acute renal failure from obstructive uropathy, now relieved and voiding. baseline creatinine 1.0 last reading 2019. presented w/ creatinine 2.7, up to 3.3 day after procedure. suspect increase in creat despite removal of obstruction is from delay in creatinine. chemistries acceptalbe apart from mild hyperchloremia; volume status ok. no bacteriuria so do not expect + urine cx; blood cxs pending. very slight confusion noted ? pain meds >will d/w hospitalist > may want to minimize or avoid morphine w/ worsening renal failure since metabolites can accumulate; recommend hydromorphone if f urtheropiates needed -changed NS to normosol at 80 ml/hr -daily bmp -diet ok -cont ot avoid nephrotoxins -no indication at this time for discussion of dialysis Present on Admission?: Yes (2) Ureteral calculus, left: calcium oxalate stone by hx in setting of malabsorptive bypass procedures; need to verify her hx; s/p stent -cont IVF for now Present on Admission?: Yes (3) History of nephrectomy, right: d/t remote hx of RCC; increases renal risk Present on Admission?: Yes (4) Dysuria: monitor sx; suspect from stone and from instrumentation; should improve w/ more voiding -observe for now adn f/u cxs Care coordinated w/ Dr Haro. Present on Admission?: Yes History of Present Illness Reason for Consultation: IRAM, obstructing stone, solitary kidney Requesting Physician: Dr Haro Attending Physician: López Haro MD History of Present Illness 60 y/o F whom I'm asked to see for IRAM in the setting of solitary kidney after she was admitted last night for obstructing 7 mm L proximal stone s/p urgent L ureteral stent. Other PMH includes 1998 nephrectomy for renal cell carcinoma, gastric bypass approximately early , calcium oxalate stone x one other epis ode shortly after bypass, HL, HTN, anx/depression, gerd. Her creatinine in 2018 was 1.1; 1.0 in 2019 in [facility] system (last available lab); on presentation last evening she was 2.7, up to 3.4 this am. no sob, no edema, N and flank pain much improved; does note ongoing marked dysuria w/o gross ed turia since procedure; was anuric prior to OR. Allergies Allergy/AdvReac Type Severity Reaction Status Date / Time Penicillins Allergy Severe ANAPHYLAXIS Verified 01/01/21 11:23 cat dander Allergy Intermediate Itching Verified 01/01/21 11:23 erythromycin base Allergy Intermediate Nausea/Vomi Verified 01/01/21 11:23 ting morphine Allergy Intermediate Migraine Verified 01/01/21 11:23 tramadol Allergy Intermediate Rash Verified 01/01/21 11:23 hydrocodone Allergy Unknown MIGRAIN Unverified 01/01/21 11:23 oxycodone [From Percocet] AdvReac Severe Migraine Verified 01/01/21 11:23 Dust Mite Extract Allergy Intermediate Sneezing Uncoded 01/01/21 11:23 and watery eyes [place] Allergy Intermediate Rash Uncoded 01/01/21 11:23 BIRD FEATHERS Allergy Unknown Rash Uncoded 01/01/21 11:23 Home Medications Medication Instructions Recorded Confirmed Type acetaminophen [Tylenol Extra 500 mg PO Q4 PRN 08/17/18 01/01/21 History Strength] atorvastatin 40 mg PO QPM 08/17/18 01/01/21 History biotin 1,000 mcg PO QPM 08/17/18 01/01/21 History bupropion HCl [Wellbutrin SR] 150 mg PO DAILY 08/17/18 01/01/21 History bupropion HCl [Wellbutrin SR] 300 mg PO HS 08/17/18 01/01/21 History cholecalciferol (vitamin D3) 1,000 unit PO QPM 08/17/18 01/01/21 History [Vitamin D3] cyanocobalamin (vitamin B-12) 100 mcg PO QPM 08/17/18 01/01/21 History [Vitamin B-12] escitalopram oxalate [Lexapro] 20 mg PO QPM 08/17/18 01/01/21 History lansoprazole [Prevacid] 30 mg PO DAILY 08/17/18 01/01/21 History magnesium oxide 400 mg PO QPM 08/17/18 01/01/21 History metoprolol tartrate 25 mg PO BID 08/17/18 01/01/21 History oxybutynin chloride 5 mg PO DAILY 08/17/18 01/01/21 History riboflavin (vitamin B2) 400 mg PO QPM 08/17/18 01/01/21 History albuterol sulfate 2 puff INHALATION Q4H PRN 01/01/21 01/01/21 History vitamins A,C,N-wcrn-gttfuk 2 tab PO DAILY 01/01/21 01/01/21 History [PreserVision AREDS] Patient History Medical History Depression with anxiety Dyslipidemia Exercise-induced asthma GERD (gastroesophageal reflux disease) H/O unilateral nephrectomy Right Hypertension Prediabetes Renal cancer Surgical History H/O gastric bypass History of nephrectomy, right Hx of cholecystectomy S/P ANNY-BSO Family History Mother Diabetes Sister Diabetes Other Cancer Hypertension Social History Smoking Status: Never smoker Second Hand Exposure: Yes; Hx Alcohol Use: No Hx Substance Use: No Preferred Language: Malaysian Communication Ability: Effective Line Crewman Required: No Beliefs That Will Affect Care: None Current Living Situation: Family Other Information That Helps Us Care for You: No Feels Safe at Home: Yes Safety Concerns: Feels Safe At This Time Assistive Devices: Glasses Review of Systems Review of Systems: All systems reviewed & are unremarkable except as noted in HPI & below Physical Exam Constitutional: well developed, well nourished and + obese; no acute distress Eyes: EOM intact bilaterally ENMT: Ears: no external ear abnormality Nose: no external nose abnormality Mouth: + dry oral mucous membranes Neck: no nuchal rigidity Respiratory: normal respiratory effort Auscultation: lungs clear to auscultation bilaterally and + diminished lung sounds Cardiovascular: RRR, no murmur, no edema Gastrointestinal (Abdomen): Inspection/Auscultation: normal bowel sounds Percussion/Palpation: abdomen soft; abdomen nontender Musculoskeletal: Extremities: strength 5/5 throughout no flank pain Skin: no rashes, warm and dry Neurologic: awake gonzalez, fluent speech, no tremor -- some trouble w/ memory/ word finding >> ? if anxiety Psychiatric: Orientation: alert and oriented x 3 Speech: normal rat e/rhythm/volume of speech Affect: + anxious affect Results & Data ([facility]) Vital Signs (Past 12 Hours) Vital Signs Temp Pulse Pulse Resp BP Pulse Ox 01/02/21 07:44 36.7 C 63 18 117/64 95 01/02/21 07:27 69 01/02/21 03:00 36.7 C 73 20 142/78 H 97 01/01/21 23:02 36.6 C 66 20 148/88 H 95 Laboratory Results 01/02/21 05:38 01/02/21 05:38 uacm > no bacteria, >30 RBC, +WBC and epithelial cells blood and urine cxs pending Diagnostic Findings CT abd/pelvis non con admissn Lower chest: There is subtle groundglass attenuation of the dependent portion of the lower lobes. There are no significant pleural effusions. Liver: There is stable 25 mm left hepatic lobe hypodensity, likely representing a cyst. Gallbladder: Surgically absent Spleen: Normal in size and attenuation. Pancreas: Unremarkable. Adrenal glands: There is a stable 18 mm right adrenal nodule likely representing an adenoma Kidneys: The right kidney appears surgically absent. There is left-sided hydronephrosis, hydroureter, and perinephric stranding. There is an obstructing proximal left ureteral calculus measuring 7 x 5 x 4 mm. This is located at the L3-4 level. Bowel: There are no transition zones to indicate bowel obstruction. There are postsurgical changes of a gastric bypass. There is no evidence of acute diverticulitis. By history the appendix is surgically absent Peritoneum: There is no intraperitoneal free air or abdominal ascites. Vasculature: The abdominal aorta is normal in course and caliber. Adenopathy: None. Pelvic viscera: The uterus appears surgically absent Skeletal structures: No destructive osseous lesions are seen. IMPRESSION: 1. Obstructing 7 x 5 x 4 mm proximal left ureteral calculus 2. Surgically absent right kidney 3. No evidence of bowel obstruction. No evidence of free air cxr > borderline cardiomegaly w/o acute CP process
--- NOTE | 2021-01-02 11:15 | Urology Progress Note ---
Date of Service January 02, 2021 Assessment & Plan (1) Ureteral calculus, left: (2) History of nephrectomy, right: 60yo F with a hx of right nephrectomy admitted with intractable left flank pain and nausea secondary to a 7mm obstructing proximal left ureteral calculus with hydronephrosis. -POD #1 s/p Cystoscopy, Left stent placement by Dr. العلي -Patient doing well with improvement in symptoms post procedure -Remains afebrile -Labs reviewed, presented w/ creatinine 2.7, up to 3.3 today - Nephrology following, will continue to trend -Tolerating stent with minimal discomfort -Voiding without difficulty, will continue to monitor -Urine and blood cultures pending -Continue supportive care and antibiotics, follow cultures -Will continue to follow Admission and Anticipated Discharge Date Admission Date: January 01, 2021 Subjective POD #1 s/p Cystoscopy, Left stent placement with Dr. العلي Pt examined at bedside this AM. Awake, sitting up in bed on arrival. She reports a significant improvement in pain. Tolerating the stent with minimal bother. Voiding without difficulty, some hematuria and dysuria as expected. Denies fevers or chills. Tolerating reg diet, no nausea or vomiting. Overall feeling much better. Chart review: Afebrile Wbc 14.27 (previously 15.02) Hgb 10.6 (previously 12.1) Cr 3.35 (previously 2.72) Urine output overnight- 175ml Urine and blood cultures pending On IV renal dose Cipro Review of Systems Constitutional: as per Subjective / HPI Gastrointestinal: as per Subjective / HPI Genitourinary: as per Subjective / HPI Physical Exam Constitutional: well developed and well nourished; no acute distress Respiratory: normal respiratory effort and able to speak in complete sentences Cardiovascular: Extremities: no calf tenderness Gastrointestinal (Abdomen): Percussion/Palpation: abdomen soft; abdomen nontender and no guarding Skin: no rashes, warm and dry Neurologic: moves all extremities and awake; not confused Psychiatric: A+Ox3, euthymic affect Results & Data ([facility]) Vital Signs (Past 12 Hours) Vital Signs Temp Pulse Pulse Resp BP Pulse Ox 01/02/21 07:44 36.7 C 63 18 117/64 95 01/02/21 07:27 69 01/02/21 03:00 36.7 C 73 20 142/78 H 97 PG Care Time/CCT Total # of Minutes Spent Total Time Spent with Patient: Total time spent is greater than 50% in coordination of care (as documented) at patient's floor/unit and/or counseling patient: Coding Level of Care Code 63630 Subseq Hosp Care Lvl 2 Diagnoses Ureteral calculus, left N20.1 History of nephrectomy, right Z90.5
[2021-01-02] MEDS ORDERED: HYDROmorphone HCL 2 MG TAB PO PRN (11:26)
[2021-01-02] MEDS: NORMOSOL-R 1,000 ML IV SCH (11:31)
--- NOTE | 2021-01-02 15:13 | Hospitalist Progress Note ---
Date of Service January 02, 2021 Assessment & Plan (1) Ureteral calculus, left: Patient is a 60 yr female with H/O Right renal cell CA s/p nephrectomy, HTN, dyslipidemia, kidney stone, gastric bypass, GERD, anxiety, depression presented to ER with c/o Left flank pain and nausea x 1 day. Left Ureteral Stone -CT ABD:1. Obstructing 7 x 5 x 4 mm proximal left ureteral calculus. Surgically absent right kidney. No evidence of bowel obstruction. No evidence of free air -S/P Cystoscopy, Left stent placement by Dr. العلي POD #1 -Blood Cx: Negative to date -Urine Cx;Negative -Empirically receiving Ciprofloxacin -Appreciate Urology Input -Pain Control -Needs follow up with Urology upon discharge (2) IRAM (acute kidney injury): H/O Right Nephrectomy Baseline Cr: ~ 1.0 Monitor renal function Continue IV fluids Avoid Nephrotoxic agents as able Appreciate Nephrology Input (3) History of nephrectomy, right: H/O Right renal CA s/p nephrectomy (4) Hypertension: Continue metoprolol (5) Dyslipidemia: Continue statin (6) Depression with anxiety: Continue escitalopram, bupropion (7) GERD (gastroesophageal reflux disease): Continue PPI DVT Px SCDs Encourage to ambulate Code Status Full Code Disposition Follows with Dr Harmon for routine care Admission and Anticipated Discharge Date Admission Date: January 01, 2021 Subjective Patient is seen and examined bedside States having minimal dysuria Denies hematuria Also states having right-sided sciatic pain Denies chest pain, dyspnea, dizziness, nausea, abdominal pain Offers no other complaints Review of Systems Review of Systems: All systems reviewed & are unremarkable except as noted in HPI & below Physical Exam Physical Exam: Physical Exam: Vitals signs as noted above General Appearance:Obese, no apparent distress Head: normocephalic, Atraumatic Eyes: normal inspection, EOMI Neck: supple, Trachea midline Respiratory/Chest: Normal breath sounds, CTA Cardiovascular: S1, S2, No murmur Abdomen/GI:Soft, Non tender, Bowel sounds present Extremities/Musculoskelatal:normal inspection, no edema Neurologic/Psych:AAOX3, grossly no focal neurological deficits Skin: normal color, warm Results & Data Results & Data ([facility]) Vital Signs (Past 12 Hours) Vital Signs Temp Pulse Pulse Resp BP Pulse Ox 01/02/21 11:32 36.8 C 62 18 120/73 95 01/02/21 07:44 36.7 C 63 18 117/64 95 01/02/21 07:27 69 Laboratory Results Short CBC 01/02/21 Range/Units 05:38 WBC 14.27 H (4.8-10.8) K/uL Hgb 10.6 L (12.0-16.0) g/dL Hct 33.5 L (37-47) % Plt Count 207 (130-400) K/uL BMP 01/02/21 05:38 Sodium 142 Potassium 4.6 Chloride 113 H Carbon Dioxide 21 BUN 34 H Creatinine 3.35 H D Glucose 156 H Calcium 9.7 Urine 01/01/21 Range/Units Unknown Urine Color Dark Yellow Urine Appearance Cloudy A (Clear) Urine pH 6.5 (4.5-7.5) Ur Specific [place] 1.013 (1.000-1.030) Urine Protein 3+ H (Negative) Urine Glucose (UA) Negative (Negative)
[2021-01-02] MEDS: CYANOCOBALAMIN (VITAMIN B-12) 100 MCG TABLET PO SCH (20:05)
[2021-01-02] MEDS: ESCITALOPRAM OXALATE 20 MG TAB PO SCH (20:05)
[2021-01-02] MEDS: CHOLECALCIFEROL 1,000 UNITS 25 MCG TAB PO SCH (20:05)
[2021-01-02] MEDS: ATORVASTATIN 40 MG TAB PO SCH (20:05)
[2021-01-02] MEDS: MAGNESIUM OXIDE 400 MG TAB PO SCH (20:05)
[2021-01-02] MEDS ORDERED: BENZONATATE 100 MG CAPSULE PO PRN (21:14)
[2021-01-03] MEDS: ACETAMINOPHEN 325 MG TAB PO PRN (00:07)
[2021-01-03] MEDS: guaiFENesin SUGAR FREE 200 MG/10 ML UDC PO PRN ×3 (00:07→19:03)
[2021-01-03] MEDS: NORMOSOL-R 1,000 ML IV SCH (00:54)
[2021-01-03 06:47] LABS: Hematocrit (blood only) 30.9 % (37-47); Hemoglobin 9.9 g/dL (12.0-16.0); Mean Corpuscular Hemoglobin 28.4 pg (25-34); Mean Corpuscular Volume 88.5 fL (80-100); Mean Platelet Volume 9.9 fL (7.4-10.4); Platelet Count 199 K/uL (130-400); RDW Coefficient of Variation 15.4 % (11.5-14.5); Red Blood Count 3.49 M/uL (4.2-5.4)
[2021-01-03 07:23] LABS: BUN Creatinine Ratio 10.9 (10-20); Calcium 9.7 mg/dl (8.5-10.1); Est GFR (African American) 23.8; Est GFR (Non-African American) 20.5; Magnesium 2.1 mg/dl (1.8-2.4); Potassium 4.3 mmol/L (3.5-5.1)
--- NOTE | 2021-01-03 08:08 | Nephrology Progress Note ---
Date of Service January 03, 2021 Assessment & Plan (1) IRAM (acute kidney injury): improving stage 3 acute renal failure from obstructive uropathy, now relieved and voiding. baseline creatinine 1.0 last reading 2018. presented w/ creatinine 2.7, up to 3.4 day after procedure on 01/02. suspect increase in creat despite removal of obstruction is from delay in creatinine. down to 2.5 today. chemistries acceptabl apart from worsening hyperchloremia; volume status ok. no bacteriuria so do not expect + urine cx; blood cxs pending and NGTD. very slight confusion noted 01/02 ? pain meds > cleared on 01/03 >cont to avoid morphine w/ worsening renal failure since metabolites can accumulate; recommend hydromorphone if furtheropiates needed -changed normosol to 1/2 NS at 125 ml/hr -daily bmp -diet ok -cont ot avoid nephrotoxins -no indication at this time for discussion of dialysis (2) Ureteral calculus, left: calcium oxalate stone by hx in setting of malabsorptive bypass procedures; need to verify her hx; s/p stent -cont IVF as above for now (3) History of nephrectomy, right: d/t remote hx of RCC; increases renal risk (4) Dysuria: monitor sx; suspect from stone and from instrumentation; should improve w/ more voiding >> resolved (5) Cough: ? asthma versus irritation/trauma from procedure anesthesia; no respiratory concerns currently; Dr Haro aware Care coordinated w/ Dr Haro Present on Admission?: Yes Admission and Anticipated Discharge Date Admission Date: January 01, 2021 Subjective dysuria resolved. feels generally improved; no sob or orthopnea but does c/o cough and upper chest tightness since arrival. seen on rounds at 10am. Review of Systems Review of Systems: All systems reviewed & are unremarkable except as noted in Subjective Physical Exam Constitutional: well developed, well nourished and + obese; no acute distress Eyes: EOM intact bilaterally ENMT: Ears: no external ear abnormality Nose: no external nose abnormality Mouth: + dry oral mucous membranes Neck: no nuchal rigidity Respiratory: normal respiratory effort; no labored breathing Auscultation: lungs clear to auscultation bilaterally and + diminished lung sounds on RA Cardiovascular: RRR, no murmur, no edema Gastrointestinal (Abdomen): Inspection/Auscultation: normal bowel sounds Percussion/Palpation: abdomen soft; abdomen nontender Musculoskeletal: Extremities: strength 5/5 throughout Skin: no rashes, warm and dry Neurologic: awake Psychiatric: Orientation: alert and oriented x 3 Speech: normal rate/rhythm/volume of speech Affect: + anxious affect Results & Data ([facility]) Vital Signs (Past 12 Hours) Vital Signs Temp Pulse Pulse Resp BP BP Pulse Ox 01/03/21 07:35 36.7 C 62 18 137/85 98 01/03/21 03:00 65 01/03/21 02:35 36.9 C 68 18 124/78 97 01/02/21 22:27 36.8 C 64 18 112/72 96 01/02/21 20:08 57 L 136/84 Laboratory Results 01/03/21 06:01 01/03/21 06:01
[2021-01-03] MEDS: SODIUM CHLORIDE 0.45 % 1,000 ML IV SCH ×2 (09:14→17:54)
[2021-01-03] MEDS: METOPROLOL TARTRATE 25 MG TAB PO SCH ×2 (09:17→20:50)
[2021-01-03] MEDS: buPROPion SR 150 MG TABCR PO SCH ×2 (09:17→20:50)
[2021-01-03] MEDS: LANSOPRAZOLE 30 MG SOLTAB PO SCH (09:17)
--- NOTE | 2021-01-03 09:48 | Urology Progress Note ---
Date of Service January 03, 2021 Assessment & Plan (1) History of nephrectomy, right: (2) Ureteral calculus, left: 60yo F with a hx of right nephrectomy admitted with intractable left flank pain and nausea secondary to a 7mm obstructing proximal left ureteral calculus with hydronephrosis. -POD #2 s/p Cystoscopy, Left stent placement by Dr. العلي -Patient doing well, clinically progressing -Remains afebrile -Labs reviewed, creatinine down to 2.4 today- Nephrology following, continue to trend -Tolerating stent with minimal discomfort -Voiding without difficulty -Urine culture negative -Blood cultures pending -Continue supportive care and antibiotics, follow cultures -Will arrange outpatient follow-up with urology for definitive stone management -Thank you for allowing us to participate in the acute care of Mrs. Reyna. Please reconsult us with additional questions, concerns or changes in patient status. Admission and Anticipated Discharge Date Admission Date: January 01, 2021 Subjective POD #2 s/p Cystoscopy, Left stent placement by Dr. العلي Pt examined at bedside this AM. Awake, sitting up in bed on arrival. Denies any pain or discomfort at this time. Tolerating the stent with minimal bother. Voiding without difficulty, denies hematuria and dysuria. Some urinary urgency. Denies fevers or chills. Tolerating diet, no nausea or vomiting. No additional complaints today Chart review: Afebrile Wbc 9.70 Hgb 9.9 Cr 2.47 (previously 3.35) Urine output overnight- 1450ml Urine culture final no growth Blood cultures pending On IV renal dose Cipro Review of Systems Constitutional: as per Subjective / HPI Gastrointestinal: as per Subjective / HPI Genitourinary: as per Subjective / HPI Physical Exam Constitutional: well developed and well nourished; no acute distress and not ill appearing Respiratory: normal respiratory effort and able to speak in complete sentences Cardiovascular: Extremities: no calf tenderness Gastrointestinal (Abdomen): Percussion/Palpation: abdomen soft; abdomen nontender and no guarding Skin: no rashes, warm and dry Neurologic: moves all extremities and awake Psychiatric: Orientation: alert, oriented x 3 and cooperative Results & Data ([facility]) Vital Signs (Past 12 Hours) Vital Signs Temp Pulse Pulse Resp BP BP Pulse Ox 01/03/21 07:35 36.7 C 62 18 137/85 98 01/03/21 03:00 65 01/03/21 02:35 36.9 C 68 18 124/78 97 01/02/21 22:27 36.8 C 64 18 112/72 96 PG Care Time/CCT Total # of Minutes Spent Total Time Spent with Patient: Total time spent is greater than 50% in coordination of care (as documented) at patient's floor/unit and/or counseling patient: Coding Level of Care Code 69323 Subseq Hosp Care Lvl 2 Diagnoses History of nephrectomy, right Z90.5 Ureteral calculus, left N20.1
[2021-01-03] MEDS ORDERED: BENZONATATE 100 MG CAPSULE PO PRN (11:55)
[2021-01-03] MEDS: DOXYCYCLINE HYCLATE 100 MG CAP PO SCH ×2 (13:19→20:49)
--- NOTE | 2021-01-03 13:22 | XRay Report ---
XR chest 2V PA/lateral CLINICAL HISTORY: Cough. COMPARISON STUDY: Chest radiograph January 01, 2021. FINDINGS: Lung volumes are normal. Lungs are clear. There is no pneumothorax or pleural effusion. Car diac size is stable. Mediastinal contours are normal. There is no evidence for pulmonary edema. IMPRESSION: No acute cardiopulmonary findings. ACT 112: Negative or not required by law. Electronically signed by: French Pelaez M.D. 01/03/2021 1:20 PM
[2021-01-03 14:37] LABS: Influenza A virus by PCR Negative (Neg); Influenza B virus by PCR Negative (Neg); RSV by PCR Negative (Neg); SARS CoV2 RNA(COVID-19) InHosp NEGATIVE (Negative)
--- NOTE | 2021-01-03 15:30 | Hospitalist Progress Note ---
Date of Service January 03, 2021 Assessment & Plan (1) Ureteral calculus, left: Patient is a 60 yr female with H/O Right renal cell CA s/p nephrectomy, HTN, dyslipidemia, kidney stone, gastric bypass, GERD, anxiety, depression presented to ER with c/o Left flank pain and nausea x 1 day. Left Ureteral Stone -CT ABD:1. Obstructing 7 x 5 x 4 mm proximal left ureteral calculus. Surgically absent right kidney. No evidence of bowel obstruction. No evidence of free air -S/P Cystoscopy, Left stent placement by Dr. العلي POD #2 -Blood Cx: Negative to date -Urine Cx;Negative -Empirically received Ciprofloxacin -Appreciate Urology Input -Pain Control -Needs follow up with Urology upon discharge (2) IRAM (acute kidney injury): H/O Right Nephrectomy Baseline Cr: ~ 1.0 Monitor renal function Continue IV fluids Avoid Nephrotoxic agents as able Appreciate Nephrology Input Cr: 2.7>3.3>2.4 Possible acute bronchitis Covid screen negative Chest x-ray: No acute cardiopulmonary findings. Started on Doxycycline (3) History of nephrectomy, right: H/O Right renal CA s/p nephrectomy (4) Hypertension: Continue metoprolol (5) Dyslipidemia: Continue statin (6) Depression with anxiety: Continue escitalopram, bupropion (7) GERD (gastroesophageal reflux disease): Continue PPI DVT Px SCDs Encourage to ambulate Code Status Full Code Disposition Follows with Dr Harmon for routine care Admission and Anticipated Discharge Date Admission Date: January 01, 2021 Subjective Patient is seen and examined bedside Reports non expectorant cough Also states having sore throat Dysuria resolved Denies flank pain, chest pain, dyspnea, dizziness, nausea, abdominal pain Renal function slowly improving Review of Systems Review of Systems: All systems reviewed & are unremarkable except as noted in HPI & below Physical Exam Physical Exam: Physical Exam: Vitals signs as noted above General Appearance:Obese, no apparent distress Head: normocephalic, Atraumatic Eyes: normal inspection, EOMI Neck: supple, Trachea midline Respiratory/Chest: Normal breath sounds, CTA Cardiovascular: S1, S2, No murmur Abdomen/GI:Soft, Non tender, Bowel sounds present Extremities/Musculoskelatal:normal inspection, no edema Neurologic/Psych:AAOX3, grossly no focal neurological deficits Skin: normal color, warm Results & Data Results & Data ([place]) Vital Signs (Past 12 Hours) Vital Signs Temp Pulse Pulse Resp BP BP Pulse Ox 01/03/21 15:23 36.6 C 61 20 133/77 96 01/03/21 11:42 57 L 01/03/21 11:26 36.6 C 52 L 18 130/85 97 01/03/21 07:35 36.7 C 62 18 137/85 98 Laboratory Results Short CBC 01/03/21 Range/Units 06:01 WBC 9.70 (4.8-10.8) K/uL Hgb 9.9 L (12.0-16.0) g/dL Hct 30.9 L (37-47) % Plt Count 199 (130-400) K/uL BMP 01/03/21 06:01 Sodium 146 H Potassium 4.3 Chloride 115 H Carbon Dioxide 27 BUN 27 H Creatinine 2.47 H D Glucose 99 Calcium 9.7
[2021-01-03] MEDS: ATORVASTATIN 40 MG TAB PO SCH (20:49)
[2021-01-03] MEDS: ESCITALOPRAM OXALATE 20 MG TAB PO SCH (20:49)
[2021-01-03] MEDS: MAGNESIUM OXIDE 400 MG TAB PO SCH (20:49)
[2021-01-03] MEDS: CYANOCOBALAMIN (VITAMIN B-12) 100 MCG TABLET PO SCH (20:50)
[2021-01-03] MEDS: CHOLECALCIFEROL 1,000 UNITS 25 MCG TAB PO SCH (20:50)
[2021-01-04] MEDS: SODIUM CHLORIDE 0.45 % 1,000 ML IV SCH ×2 (02:53→11:55)
[2021-01-04 05:56] LABS: Hemoglobin 9.9 g/dL (12.0-16.0); Mean Corpuscular Hemoglobin 28.1 pg (25-34); Mean Corpuscular Hgb Conc 31.9 g/dL (32-36); Mean Corpuscular Volume 88.1 fL (80-100); Mean Platelet Volume 9.6 fL (7.4-10.4); Platelet Count 190 K/uL (130-400); RDW Coefficient of Variation 15.3 % (11.5-14.5); RDW Standard Deviation 49.2 fL (36.4-46.3); Red Blood Count 3.52 M/uL (4.2-5.4)
[2021-01-04] MEDS: ACETAMINOPHEN 325 MG TAB PO PRN (06:13)
[2021-01-04 06:23] LABS: BUN Creatinine Ratio 12.1 (10-20); Calcium 9.8 mg/dl (8.5-10.1); Creatinine Clr Calc Pharmacy 36.9 ml/min; Est GFR (African American) 33.3; Est GFR (Non-African American) 28.7; Potassium 4.3 mmol/L (3.5-5.1)
[2021-01-04] MEDS: ONDANSETRON INJ 2 MG/ML 2 ML VIAL IV PRN (06:23)
[2021-01-04] MEDS: METOPROLOL TARTRATE 25 MG TAB PO SCH (09:02)
[2021-01-04] MEDS: LANSOPRAZOLE 30 MG SOLTAB PO SCH (09:02)
[2021-01-04] MEDS: buPROPion SR 150 MG TABCR PO SCH (09:03)
[2021-01-04] MEDS: DOXYCYCLINE HYCLATE 100 MG CAP PO SCH (09:03)
--- NOTE | 2021-01-04 11:35 | Hospitalist Progress Note ---
Date of Service January 04, 2021 Assessment & Plan (1) Ureteral calculus, left: Patient is a 60 yr female with H/O Right renal cell CA s/p nephrectomy, HTN, dyslipidemia, kidney stone, gastric bypass, GERD, anxiety, depression presented to ER with c/o Left flank pain and nausea x 1 day. Left Ureteral Stone -CT ABD:1. Obstructing 7 x 5 x 4 mm proximal left ureteral calculus. Surgically absent right kidney. No evidence of bowel obstruction. No evidence of free air -S/P Cystoscopy, Left stent placement by Dr. العلي POD #3 -Blood Cx: Negative to date -Urine Cx;Negative -Empirically received Ciprofloxacin -Appreciate Urology Input -Pain Control -Needs follow up with Urology upon discharge (2) IRAM (acute kidney injury): H/O Right Nephrectomy Baseline Cr: ~ 1.0 Monitor renal function Continue IV fluids as per Nephrology Avoid Nephrotoxic agents as able Appreciate Nephrology Input Cr: 2.7>3.3>2.4>1.8 Possible acute bronchitis Covid screen negative Chest x-ray: No acute cardiopulmonary findings. Continue Doxycycline Symptomatically improved (3) History of nephrectomy, right: H/O Right renal CA s/p nephrectomy (4) Hypertension: Continue metoprolol (5) Dyslipidemia: Continue statin (6) Depression with anxiety: Continue escitalopram, bupropion (7) GERD (gastroesophageal reflux disease): Continue PPI DVT Px SCDs Encourage to ambulate Code Status Full Code Disposition Follows with Dr Harmon for routine care Admission and Anticipated Discharge Date Admission Date: January 01, 2021 Subjective Patient is seen and examined bedside Cough, sore throat much improved No new complaints Renal function continues to improve Denies flank pain, dysuria, hematuria, chest pain, dyspnea, dizziness, nausea, abdominal pain Review of Systems Review of Systems: All systems reviewed & are unremarkable except as noted in HPI & below Physical Exam Physical Exam: Physical Exam: Vitals signs as noted above General Appearance:Obese, no apparent distress Head: normocephalic, Atraumatic Eyes: normal inspection, EOMI Neck: supple, Trachea midline Respiratory/Chest: Normal breath sounds, CTA Cardiovascular: S1, S2, No murmur Abdomen/GI:Soft, Non tender, Bowel sounds present Extremities/Musculoskelatal:normal inspection, no edema Neurologic/Psych:AAOX3, grossly no focal neurological deficits Skin: normal color, warm Results & Data Results & Data ([facility]) Vital Signs (Past 12 Hours) Vital Signs Temp Pulse Pulse Pulse Resp BP BP 01/04/21 11:27 52 L 01/04/21 11:18 36.8 C 52 L 18 164/86 H 01/04/21 09:04 64 01/04/21 07:26 36.6 C 59 L 18 146/74 H 01/04/21 04:00 36.9 C 56 L 18 150/81 H Pulse Ox 01/04/21 11:27 01/04/21 11:18 95 01/04/21 09:04 01/04/21 07:26 97 01/04/21 04:00 96 Laboratory Results Short CBC 01/04/21 Range/Units 05:41 WBC 7.00 (4.8-10.8) K/uL Hgb 9.9 L (12.0-16.0) g/dL Hct 31.0 L (37-47) % Plt Count 190 (130-400) K/uL BMP 01/04/21 05:41 Sodium 146 H Potassium 4.3 Chloride 115 H Carbon Dioxide 28 BUN 23 H Creatinine 1.87 H D Glucose 93 Calcium 9.8
--- NOTE | 2021-01-04 11:48 | Discharge Summary ---
Date of Service January 04, 2021 Admission HPI Per Admitting Provider Pt is 60 y/o F with PMH R renal cell CA s/p nephrectomy, HTN, dyslipidemia, kidney stone, gastric bypass, GERD, anxiety, depression presented to ER with c/o Left flank pain and nausea x 1 day. Pt states last night started with nausea then with left flank pain radiating to left lower quadrant. Denies vomiting. Reports hasn't urinated today. Denies dysuria or hematuria. Had a few sips of water today. Last ate at 6pm yesterday. Reports chills with no recorded fever. Denies diarrhea, MAGALLANES, dizziness, syncope, vision changes, neck pain, CP, SOB, orthopnea, palpitations, cough, sore throat, choking, otalgia, rhinorrhea, other abdominal pain, paresthesias, weakness, extremity weakness, extremity edema, rashes. Admission Exam Per Admitting Provider Physical Exam Physical Exam: General: no distress, obese Head: normocephalic, atraumatic Eyes: PERRL, EOM's intact, conjunctiva non-injected, anicteric ENT: normal inspection external ears, nose, mucous membranes dry Neck: supple, trachea midline, non-tender Lungs: clear, no respiratory distress, no wheezing/rhonchi/rales CV: RRR, no murmur, no pretibial edema Abd: normal BS, soft, +Left CVA and flank and LLQ tenderness to palpation Ext: no cyanosis, no calf tenderness Neuro: A&O x 3, no focal deficits noted, normal affect Skin: warm, dry Principal Diagnosis Left Ureteral Stone Acute kidney injury Acute bronchitis Discharge Data Allergies Allergy/AdvReac Type Severity Reaction Status Date / Time Penicillins Allergy Severe ANAPHYLAXIS Verified 01/01/21 11:23 cat dander Allergy Intermediate Itching Verified 01/01/21 11:23 erythromycin base Allergy Intermediate Nausea/Vomi Verified 01/01/21 11:23 ting morphine Allergy Intermediate Migraine Verified 01/01/21 11:23 tramadol Allergy Intermediate Rash Verified 01/01/21 11:23 hydrocodone Allergy Unknown MIGRAIN Unverified 01/01/21 11:23 oxycodone [From Percocet] AdvReac Severe Migraine Verified 01/01/21 11:23 Dust Mite Extract Allergy Intermediate Sneezing Uncoded 01/01/21 11:23 and watery eyes [place] Allergy Intermediate Rash Uncoded 01/01/21 11:23 BIRD FEATHERS Allergy Unknown Rash Uncoded 01/01/21 11:23 Consultations 01/01/21 11:54 ED Decision to Admit Stat 01/01/21 17:00 Consult Nephrology Routine Consult Urology Routine Procedures Performed Operation Date: 01/01/21 10:45 Actual Procedures p with Stent Insertion(Left) - Paul العلي MD s Cystoscopy, Left Retrograde Pyelogram(Left) - Paul العلي MD CT ABD:1. Obstructing 7 x 5 x 4 mm proximal left ureteral calculus. Surgically absent right kidney. No evidence of bowel obstruction. No evidence of free air Ordered Studies 01/01/21 10:00 CT abd pelvis wo con Stat 01/01/21 17:58 FL retrograde includes kub Routine Hospital Course (1) Ureteral calculus, left: Patient is a 60 yr female with H/O Right renal cell CA s/p nephrectomy, HTN, dyslipidemia, kidney stone, gastric bypass, GERD, anxiety, depression presented to ER with c/o Left flank pain and nausea x 1 day. Left Ureteral Stone -CT ABD:1. Obstructing 7 x 5 x 4 mm proximal left ureteral calculus. Surgically absent right kidney. No evidence of bowel obstruction. No evidence of free air -S/P Cystoscopy, Left stent placement by Dr. العلي POD #3 -Blood Cx: Negative to date -Urine Cx;Negative -Empirically received Ciprofloxacin -Appreciate Urology Input -Pain Control -Needs follow up with Urology upon discharge (2) IRAM (acute kidney injury): H/O Right Nephrectomy Baseline Cr: ~ 1.0 Monitor renal function Continue IV fluids as per Nephrology Avoid Nephrotoxic agents as able Appreciate Nephrology Input Cr: 2.7>3.3>2.4>1.8 Possible acute bronchitis Covid screen negative Chest x-ray: No acute cardiopulmonary findings. Continue Doxycycline Symptomatically improved (3) History of nephrectomy, right: H/O Right renal CA s/p nephrectomy (4) Hypertension: Continue metoprolol (5) Dyslipidemia: Continue statin (6) Depression with anxiety: Continue escitalopram, bupropion (7) GERD (gastroesophageal reflux disease): Continue PPI DVT Px SCDs Encourage to ambulate Code Status Full Code Disposition Follows with Dr Harmon for routine care Total Time Total Time Spent Total Time Spent (In Minutes): 38 minutes Total Time Includes: Examination of the Patient, Discharge Planning, Medication Reconciliation, Communication With Other Providers and Other Discharge Plan Discharge Items Patient Disposition: Home - Self-Care Reason For Visit: Renal Colic, IRAM Discharge Diagnosis: Left Ureteral Stone Acute kidney injury Acute bronchitis Activity: Per Instructions section Exercise/Sports: Gradually increase as tolerated Non-emergency contact: Primary Care Provider, Rn Nursery and Urologist Call non-emergency contact if: you have any medication questions, your symptoms worsen, your pain is not controlled, your pain is worsening, your pain is unusual for you, your pain is concerning for you and you have a fever Follow-up/Referrals: Kaleb Harmon MD [Primary Care Provider] - (Date & Time 01/07/2021 3:20 PM Provider Kaleb Harmon MD Department Family [facility] ) Diet: Heart Healthy Ambulatory Orders: Basic Metabolic Panel (Routine) Timeframe: 1 Week Location: Determined by Patient Ordered By: López Davis Attending Provider Instructions: Follow-up with your primary care physician Dr. Harmon on 01/07/2021 3:20 PM as scheduled Follow-up with your urologist Dr. Paul العلي for definitive ureteral stone therapy as advised Follow-up with your bakery decorator Dr. Hollingsworth with repeat blood test (basic metabolic panel in 1 week as advised) Complete the antibiotic course doxycycline as prescribed Seek immediate medical attention if your symptoms reoccur or worsen Pending Studies at Discharge: No Stand-Alone Forms: [employer], Smoking Cessation Medications and DC Order Prescriptions: New doxycycline hyclate 100 mg Capsule 100 mg PO BID Qty: 8 RF: 0 benzonatate [Tessalon Perles] 100 mg Capsule 100 mg PO TID PRN (Reason: cough) Qty: 10 RF: 0 Continued atorvastatin 40 mg Tablet 40 mg PO QPM RF: 0 bupropion HCl [Wellbutrin SR] 150 mg Tablet Sustained-Release 12 Hr 150 mg PO DAILY RF: 0 cyanocobalamin (vitamin B-12) [Vitamin B-12] 100 mcg Tablet 100 mcg PO QPM RF: 0 acetaminophen [Tylenol Extra Strength] 500 mg Tablet 500 mg PO Q4 PRN (Reason: Fever Or Pain) RF: 0 magnesium oxide 400 mg (241.3 mg magnesium) Tablet 400 mg PO QPM RF: 0 lansoprazole [Prevacid] 30 mg Capsule,Delayed Release(Dr/Ec) 30 mg PO DAILY RF: 0 oxybutynin chloride 5 mg Tablet Extended Release 24hr 5 mg PO DAILY RF: 0 escitalopram oxalate [Lexapro] 20 mg Tablet 20 mg PO QPM RF: 0 metoprolol tartrate 25 mg Tablet 25 mg PO BID RF: 0 cholecalciferol (vitamin D3) [Vitamin D3] 1,000 unit Tablet 1,000 unit PO QPM RF: 0 biotin 1,000 mcg Tablet,Chewable 1,000 mcg PO QPM RF: 0 riboflavin (vitamin B2) 400 mg Tablet 400 mg PO QPM RF: 0 bupropion HCl [Wellbutrin SR] 150 mg Tablet Sustained-Release 12 Hr 300 mg PO HS RF: 0 albuterol sulfate 90 mcg/actuation HFA aerosol inhaler 2 puff INHALATION Q4H PRN (Reason: Shortness Of Breath) RF: 0 PreserVision AREDS 7,160 unit- 113 mg-100 unit Tablet 2 tab PO DAILY RF: 0 Discharge Orders: Discharge Order (Routine); Ordered 01/04/21 Ordered By: López Haro Admission Data Admit Date/Time: 01/01/21 12:48 Attending Provider: López Haro Admit Provider: Saul Marrufo Primary Care Provider: Kaleb Harmon Other Providers: Saul Marrufo ; Beth Munguia ; Paul العلي Other Interventions: Discharge Summary Assessment (RN) Last Done: 01/04/21 12:06
== END 2021-01-04 14:54 | disposition home or self-care (01) | DRG 661 ==
LOC: ED 09:30 → SUATTDRO 12:48 → 2N 12:48